=== PATIENT | female | born 1950 | race Caucasian/White ===

== ENCOUNTER → 2017-01-11 | Outpatient (CLI) | payer OTHER ==
[~2017-01-11] MED LIST: ASPEC325 PO; CLB200 PO; HYDR-5688 PO; LSN5 PO; METF1000 PO; OMEP40CA PO; ONDA8TAB6 PO; POLY335025; SIMV10TA2 PO; ULT50X PO
[2017-01-11 09:50] LABS: ALT/SGPT 31 U/L (12-78); BLOOD UREA NITROGEN 16 mg/dl (7-18); CARBON DIOXIDE 29 mmol/L (21-32); CHLORIDE 109 mmol/L (98-107); GLUCOSE 112 mg/dl (70-99); POTASSIUM 4.2 mmol/L (3.5-5.1); SODIUM 144 mmol/L (136-145)
[2017-01-11 10:01] LABS: CALCIUM 9.4 mg/dl (8.5-10.1)
[2017-01-11 10:04] LABS: BUN/CREATININE RATIO 19.5 (10-20); CHOLESTEROL 179 mg/dl (0-200); CHOLESTEROL/HDL RATIO 3.1; CREATININE 0.84 mg/dl (0.60-1.20); HDL CHOLESTEROL 57 mg/dl; LDL CHOLESTEROL CALCULATED 97 mg/dl; TRIGLYCERIDES 124 mg/dl (0-150); VERY LOW DENSITY LIPOPROT CALC 25 mg/dl
[2017-01-11 10:16] LABS: ESTIMATED AVERAGE GLUCOSE 126 mg/dl; HA1C FLAG Normal (Normal)
--- NOTE | 2017-01-15 12:10 | CODING QUERY MEDICAL NECESSITY ---
SUPPORTING DIAGNOSIS NEEDED Dr. Dc, A supporting diagnosis is required for the test/procedure performed on this patient in order for us to be reimbursed by the patient's insurance. Please provide a supporting diagnosis for the following test/procedure listed below next to the test name along with your signature. *If there is no additional diagnosis for this patient that would support the following test/procedure please document that below next to the test/procedure. Test(s)/Procedure(s) that require a supporting diagnosis: * 38417 GLYCATED HEMOGLOBIN DIAGNOSIS: DATE OF SERVICE: 01/11/17 Provider Signature: Date: Thank you Darvin Lyn [facility] Information Management Once completed, please kindly fax back to [phone] For questions please call [phone]
== END | disposition home or self-care (01) ==
LOC: C.LAB 08:23
PROVIDERS: ATTEND Family Medicine
DX: Z11.59 Encounter for screening for other viral diseases (principal); E78.5 Hyperlipidemia, unspecified; I10 Essential (primary) hypertension

== ENCOUNTER → 2017-07-20 | Outpatient (CLI) | payer OTHER ==
[2017-07-20 10:12] LABS: BLOOD UREA NITROGEN 17 mg/dl (7-18); BUN/CREATININE RATIO 22.1 (10-20); CALCIUM 8.8 mg/dl (8.5-10.1); CARBON DIOXIDE 31 mmol/L (21-32); CHLORIDE 106 mmol/L (98-107); CREATININE 0.79 mg/dl (0.60-1.20); GLUCOSE 117 mg/dl (70-99); SODIUM 140 mmol/L (136-145)
[2017-07-20 10:15] LABS: CHOLESTEROL 194 mg/dl (0-200); HDL CHOLESTEROL 64 mg/dl; LDL CHOLESTEROL CALCULATED 105 mg/dl; TRIGLYCERIDES 124 mg/dl (0-150); VERY LOW DENSITY LIPOPROT CALC 25 mg/dl
[2017-07-20 12:33] LABS: ESTIMATED AVERAGE GLUCOSE 120 mg/dl; HA1C FLAG Normal (Normal)
== END | disposition home or self-care (01) ==
LOC: C.LAB 08:27
PROVIDERS: ATTEND Family Medicine
DX: I10 Essential (primary) hypertension (principal); R78.5 Finding of other psychotropic drug in blood; R73.03 Prediabetes

== ENCOUNTER → 2017-08-26 | Outpatient (CLI) | payer OTHER ==
[~2017-08-26] MED LIST changes: +LISI-461 PO; +LISI-730 PO; -LSN5 PO; +OMEP-334 PO; +ONDA-170 PO; -ONDA8TAB6 PO
--- NOTE | 2017-08-27 14:36 | MAMMOGRAPHY REPORT ---
BILATERAL DIGITAL SCREENING MAMMOGRAM TOMOSYNTHESIS WITH CAD: 08/26/2017 CLINICAL HISTORY: Routine screening. Patient has no complaints. TECHNIQUE: Breast tomosynthesis in addition to standard 2D mammography was performed. Current study was also evaluated with a Computer Aided Detection (CAD) system. COMPARISON: Comparison is made to exams dated: 07/03/2016 mammogram, 07/10/2015 mammogram, 07/01/2015 mammogram, 01/02/2015 mammogram, 07/03/2014 mammogram, and 04/15/2012 mammogram - [facility]. BREAST COMPOSITION: There are scattered areas of fibroglandular density in both breasts. FINDINGS: An asymmetry in the lateral right breast appears very similar to the 2010 and 2011 mammogra ms, most likely normal overlapping for particular tissue. There are scattered benign-appearing punct ate microcalcifications in the breasts. Stable intramammary lymph node in the superior left breast o n the MLO view. No new suspicious mass, architectural distortion or cluster of microcalcifications i s seen. IMPRESSION: ACR BI-RADS CATEGORY 1: NEGATIVE There is no mammographic evidence of malignancy. A 1 year screening mammogram is recommended. The pa tient will receive written notification of the results. Approximately 10% of breast cancers are not detected with mammography. A negative mammographic report should not delay biopsy if a clinically suggestive mass is present. Martha Do M.D. ay/:08/26/2017 12:43:19 Medicaid Specialist: Shruthi STAFFORD(Brenda)(Kelly)([place]), [facility] letter sent: Normal 1/2 BI-RADS Code: ACR BI-RADS Category 1: Negative
== END | disposition home or self-care (01) ==
LOC: C.MAMM 12:11
PROVIDERS: ATTEND Family Medicine
DX: Z12.31 Encounter for screening mammogram for malignant neoplasm of breast (principal)

== ENCOUNTER → 2017-12-28 | Day surgery (SDC) | payer OTHER ==
[2017-11-18 12:00] VITALS: Ht 167.6 cm; Wt 104.5 kg
[~2017-12-28] VITALS: Ht 167.6 cm; Wt 104.5 kg
[~2017-12-28] MED LIST changes: +500ML BSS 0.3ML EPI 1:1000PF IRRIG ONE; +ACETAMINOPHEN 325 MG TAB PO PRN; +AMVISC PLAIN 0.8ML SYRINGE INT OCU ONE; +AMVISC PLUS 0.8ML SYRINGE INT OCU ONE; -ASPEC325 PO; +ATROPINE SULFATE 0.1 MG/ML 5ML SYR IV PRN; +BSS FLUSH ONE; -CLB200 PO; +EpHEDrine SULFATE INJ 50 MG/ML AMP IV PRN; +EpINEphrine INJ 1MG/ML AMP 1 MG/ML AMP ONE; -HYDR-5688 PO; +LACTATED RINGER'S 1000ML 500 ML IV SCH; +LIDOCAINE 3.5% OPH GEL PER APPLICATION CHARGE ONE; +LIDOCAINE HCL 1% MPF 2 ML VIAL ONE; -LISI-730 PO; +MIDAZOLAM HCL 1 MG/ML 2ML VIAL ONE; +OCUCOAT 1 ML SOLN IO ONE; -OMEP40CA PO; -ONDA-170 PO; -POLY335025; +POVIDONE-IODINE OP SOLN 30 ML BTL ONE; +PROPARACAINE 0.5% OP SOLN PER DROP CHARGE OPR SCH; +TOBRAMYCIN/DEXAMETHASONE OPH OINT PER APPLN CHARGE ONE; -ULT50X PO
[2017-12-28] MEDS: PHENYLEPHRINE HCL 2.5% OP SOLN PER DROP CHARGE OPR SCH ×2 (06:35→06:40)
[2017-12-28] MEDS: TROPICAMIDE 1% OP SOLN PER DROP CHARGE OPR SCH ×2 (06:36→06:41)
[2017-12-28] MEDS: CYCLOPENTOLATE HCL 1% OP SOLN PER DROP CHARGE OPR SCH ×2 (06:37→06:42)
[2017-12-28] MEDS: KETOROLAC 0.5% OP SOLN PER DROP CHARGE OPR SCH ×2 (06:38→06:43)
[2017-12-28] MEDS: GATIFLOXACIN OP SOLN PER DROP CHARGE OPR SCH ×2 (06:39→06:49)
--- NOTE | 2017-12-28 06:59 | History & Physical Bridge - SC ---
H&P Re-Evaluation Bridge Note: I have examined the patient, reviewed the History & Physical and in the interval since the performance of the History & Physical I have noted the following changes of clinical significance: No changes noted
--- NOTE | 2017-12-28 07:22 | [facility] Operative Report ---
Operative Report Date of Service December 28, 2017. Operative Report 1. PREOPERATIVE DIAGNOSIS: Cataract of the right eye. 2. POSTOPERATIVE DIAGNOSIS: Same. 3. PROCEDURE: Phacoemulsification with intraocular lens implantation of the right eye. SURGEON: Dr. Jared Abdalla. ANESTHESIA: Topical Lidocaine gel, 1% Non- Preserved intracameral Lidocaine, and monitored intravenous sedation. INDICATIONS FOR THE PROCEDURE: The patient is a 67 - year-old female with a history of cataract of the right eye causing significant visual impairment. The details of the proposed procedure were explained to the patient who asked appropriate questions and following discussion of all risks, benefits and alternatives agreed to have the procedure done. Patient had corneal astigmatism and therefore elected to have a toric lens placed. 4. OPERATION AND FINDINGS: DESCRIPTION OF PROCEDURE: After informed consent was obtained, the patient was placed in an upright position and the cornea was marked at 79 degrees using the [employer] corneal marking tool. The patient was brought to the Operating Room at the [facility]. The patient was placed in a supine position and then the right eye was prepped and draped in the usual sterile fashion for intraocular surgery. A drop of topical Lidocaine gel was placed in the operative eye. A wire lid speculum was then placed in the fornices. A corneal paracentesis was then created temporally. The Non-Preserved Lidocaine was then instilled into the anterior chamber. The anterior chamber was then pressurized with viscoelastic. A 2.0 mm clear corneal incision was then created temporally. A cystotome was inserted into the anterior chamber and used to create a tear in the anterior lens capsule. This capsular tear was then used to create a small flap and the flap was dragged in a counterclockwise direction in order to create a continuous curvilinear capsulorrhexis. Hydrodissection was accomplished with balanced salt solution. Phacoemulsification of the lens nucleus was then performed in a standard utjinx-rux-stcrruo technique. The phaco time was 19 seconds with an average power of 11 %. The remaining cortical material was removed using irrigation aspiration. The capsular bag was then filled with viscoelastic. A Aaron [id number] +11.5 diopters lens was then loaded into the injector and injected into the capsular bag. The remaining viscoelastic was removed with the irrigation aspiration handpiece. The lens was aligned with the previously made corneal vásquez. The wound was hydrated and then checked and found to be watertight. The intraocular pressure was checked and found to be adequate. The wire lid speculum was removed and the patient's face was cleaned and dried. TobraDex ointment was placed in the inferior fornix. The patient was discharged to the Recovery Room having tolerated the procedure well. There were no complications. The patient will be seen tomorrow in the office for follow-up. I attest to the content of the Intraoperative Record and any orders documented therein. Any exceptions are noted below.
--- NOTE | 2017-12-28 07:23 | Discharge Instructions-SurgCtr ---
Discharge Instructions Date of Service December 28, 2017. Visit Reason for Visit: Cataract Right Eye Discharge Discharge Diagnosis / Problem: cataract Discharge Goals Goal(s): Improve function Medications Stopped Medications Name(s): metformin stopped 5/6 Activity Recommendations Activity Limitations: per Instructions/Follow-up section Anesthesia . Post Anesthesia Instructions: If you have had General Anesthesia or IV Sedation: * Do not drive today. * Resume driving when surgeon permits. * Do not make important decisions or sign legal documents today. * Call surgeon for: 1. Temperature elevations greater than 101 degrees F. 2. Uncontrollable pain. 3. Excessive bleeding. 4. Persistent nausea and vomiting. 5. Medication intolerance (nausea, vomiting or rash). * For nausea and vomiting use only clear liquids such as: tea, soda, bouillon until nausea subsides, then gradually increase diet as tolerated. * If you have any concerns or questions, call your surgeon's office. If physician is unavailable and it is an emergency, call 911 or go to the nearest emergency room. . Diet Recommendations Home Diet: resume previous diet Procedures Procedures Performed: Right Cataract Phacoemulsification With Intraocular Lens Implant Pending Studies Studies pending at discharge: no Medical Emergencies . Who to Call and When: Medical Emergencies: If at any time you feel your situation is an emergency, please call 911 immediately. . Non-Emergent Contact Non-Emergency issues call your: [employer] . . "Provider Documentation" section prepared by Jared Abdalla. .
[2017-12-28 07:25] VITALS: TEMP 36.2
--- NOTE | 2017-12-28 07:34 | Anesthesia Progress Nt - [facility] ---
Anesthesia Post Op Note Date & Time December 28, 2017 at 07:34 Vital Signs Pain Intensity: 0 Vital Signs Past 12 Hours Date Time Temp Pulse Resp B/P (MAP) Pulse Ox O2 Delivery O2 Flow Rate FiO2 12/28/17 07:25 36.2 74 16 138/76 (96) 98 Room Air 12/28/17 06:25 37.5 77 20 134/103 (113) 98 Room Air Notes Mental Status: alert / awake / arousable, participated in evaluation Pt Amnestic to Procedure: Yes Nausea / Vomiting: adequately controlled Pain: adequately controlled Airway Patency, RR, SpO2: stable & adequate BP & HR: stable & adequate Hydration State: stable & adequate Anesthetic Complications: no major complications apparent
[2017-12-28 07:44] VITALS: BP 139/74; PULSE 67; O2SAT 98
== END | disposition home or self-care (01) ==
LOC: X.SURG 06:13
PROVIDERS: ATTEND Ophthalmology
DX: H26.9 Unspecified cataract (principal); I10 Essential (primary) hypertension; E11.9 Type 2 diabetes mellitus without complications; K21.9 Gastro-esophageal reflux disease without esophagitis

== ENCOUNTER → 2018-01-11 | Day surgery (SDC) | payer OTHER ==
[2018-01-04 09:00] VITALS: Ht 167.6 cm; Wt 104.5 kg
[~2018-01-11] VITALS: Ht 167.6 cm; Wt 104.5 kg
[~2018-01-11] MED LIST changes: +PROPARACAINE 0.5% OP SOLN PER DROP CHARGE OPL SCH; -PROPARACAINE 0.5% OP SOLN PER DROP CHARGE OPR SCH
[2018-01-11] MEDS: PHENYLEPHRINE HCL 2.5% OP SOLN PER DROP CHARGE OPL SCH ×2 (09:57→10:02)
[2018-01-11] MEDS: TROPICAMIDE 1% OP SOLN PER DROP CHARGE OPL SCH ×2 (09:58→10:03)
[2018-01-11] MEDS: CYCLOPENTOLATE HCL 1% OP SOLN PER DROP CHARGE OPL SCH ×2 (09:59→10:04)
[2018-01-11] MEDS: KETOROLAC 0.5% OP SOLN PER DROP CHARGE OPL SCH ×2 (10:00→10:05)
[2018-01-11] MEDS: GATIFLOXACIN OP SOLN PER DROP CHARGE OPL SCH ×2 (10:01→10:11)
--- NOTE | 2018-01-11 10:07 | History & Physical Bridge - SC ---
H&P Re-Evaluation Bridge Note: I have examined the patient, reviewed the History & Physical and in the interval since the performance of the History & Physical I have noted the following changes of clinical significance: Diagnosis: Left Cataract Procedure: Left Cataract Removal with Lens Implant No changes noted
--- NOTE | 2018-01-11 10:43 | [facility] Operative Report ---
Operative Report Date of Service January 11, 2018. Operative Report 1. PREOPERATIVE DIAGNOSIS: Cataract of the left eye. 2. POSTOPERATIVE DIAGNOSIS: Same. 3. PROCEDURE: Phacoemulsification with intraocular lens implantation of the left eye. SURGEON: Dr. Jared Abdalla. ANESTHESIA: Topical Lidocaine gel, 1% Non- Preserved intracameral Lidocaine, and monitored intravenous sedation. INDICATIONS FOR THE PROCEDURE: The patient is a 67 - year-old female with a history of cataract of the left eye causing significant visual impairment. The details of the proposed procedure were explained to the patient who asked appropriate questions and following discussion of all risks, benefits and alternatives agreed to have the procedure done. Patient had corneal astigmatism and therefore elected to have a toric lens placed. 4. OPERATION AND FINDINGS: DESCRIPTION OF PROCEDURE: After informed consent was obtained, the patient was placed in an upright position and the cornea was marked at 86 degrees using the [employer] corneal marking tool. The patient was brought to the Operating Room at the [facility]. The patient was placed in a supine position and then the left eye was prepped and draped in the usual sterile fashion for intraocular surgery. A drop of topical Lidocaine gel was placed in the operative eye. A wire lid speculum was then placed in the fornices. A corneal paracentesis was then created temporally. The Non-Preserved Lidocaine was then instilled into the anterior chamber. The anterior chamber was then pressurized with viscoelastic. A 2.0 mm clear corneal incision was then created temporally. A cystotome was inserted into the anterior chamber and used to create a tear in the anterior lens capsule. This capsular tear was then used to create a small flap and the flap was dragged in a counterclockwise direction in order to create a continuous curvilinear capsulorrhexis. Hydrodissection was accomplished with balanced salt solution. Phacoemulsification of the lens nucleus was then performed in a standard vvvzpt-ruc-sehowvv technique. The phaco time was 17 seconds with an average power of 10 %. The remaining cortical material was removed using irrigation aspiration. The capsular bag was then filled with viscoelastic. A Aaron [id number] +11.5 diopters lens was then loaded into the injector and injected into the capsular bag. The remaining viscoelastic was removed with the irrigation aspiration handpiece. The lens was aligned with the previously made corneal vásquez. The wound was hydrated and then checked and found to be watertight. The intraocular pressure was checked and found to be adequate. The wire lid speculum was removed and the patient's face was cleaned and dried. TobraDex ointment was placed in the inferior fornix. The patient was discharged to the Recovery Room having tolerated the procedure well. There were no complications. The patient will be seen tomorrow in the office for follow-up. I attest to the content of the Intraoperative Record and any orders documented therein. Any exceptions are noted below.
--- NOTE | 2018-01-11 10:44 | Discharge Instructions-SurgCtr ---
Discharge Instructions Date of Service January 11, 2018. Visit Reason for Visit: Cataract Left Eye Discharge Discharge Diagnosis / Problem: cataract Discharge Goals Goal(s): Improve function Medications Stopped Medications Name(s): metformin stopped 01-08-18 Activity Recommendations Activity Limitations: per Instructions/Follow-up section Anesthesia . Post Anesthesia Instructions: If you have had General Anesthesia or IV Sedation: * Do not drive today. * Resume driving when surgeon permits. * Do not make important decisions or sign legal documents today. * Call surgeon for: 1. Temperature elevations greater than 101 degrees F. 2. Uncontrollable pain. 3. Excessive bleeding. 4. Persistent nausea and vomiting. 5. Medication intolerance (nausea, vomiting or rash). * For nausea and vomiting use only clear liquids such as: tea, soda, bouillon until nausea subsides, then gradually increase diet as tolerated. * If you have any concerns or questions, call your surgeon's office. If physician is unavailable and it is an emergency, call 911 or go to the nearest emergency room. . Diet Recommendations Home Diet: resume previous diet Procedures Procedures Performed: Left Cataract Phacoemulsification With Intraocular Lens Implant; Toric Lens Pending Studies Studies pending at discharge: no Medical Emergencies . Who to Call and When: Medical Emergencies: If at any time you feel your situation is an emergency, please call 911 immediately. . Non-Emergent Contact Non-Emergency issues call your: [employer] . . "Provider Documentation" section prepared by Jared Abdalla. .
[2018-01-11 11:07] VITALS: BP 137/82; PULSE 57; O2SAT 99
--- NOTE | 2018-01-11 11:14 | Anesthesia Progress Nt - [facility] ---
Anesthesia Post Op Note Date & Time January 11, 2018 at 11:14 Vital Signs Pain Intensity: 0 Vital Signs Past 12 Hours Date Time Temp Pulse Resp B/P (MAP) Pulse Ox O2 Delivery O2 Flow Rate FiO2 01/11/18 11:07 57 18 137/82 (100) 99 Room Air 01/11/18 10:48 36.5 78 16 144/82 (102) 97 Room Air 01/11/18 09:54 36.9 72 16 151/97 (115) 99 Room Air Notes Mental Status: alert / awake / arousable, participated in evaluation Pt Amnestic to Procedure: Yes Nausea / Vomiting: adequately controlled Pain: adequately controlled Airway Patency, RR, SpO2: stable & adequate BP & HR: stable & adequate Hydration State: stable & adequate Anesthetic Complications: no major complications apparent
== END | disposition home or self-care (01) ==
LOC: X.SURG 09:45
PROVIDERS: ATTEND Ophthalmology
DX: H26.9 Unspecified cataract (principal); K22.70 Barrett's esophagus without dysplasia; E78.5 Hyperlipidemia, unspecified; I10 Essential (primary) hypertension; E11.9 Type 2 diabetes mellitus without complications; Z79.84 Long term (current) use of oral hypoglycemic drugs; Z87.891 Personal history of nicotine dependence

== ENCOUNTER 2023-08-08 11:13 | Inpatient (IN) ==
[2023-08-08] MEDS ORDERED: fentaNYL citrate PF 100 MCG/2 ML VIAL IV STA ×2 (11:21→11:47)
[2023-08-08] MEDS ORDERED: ONDANSETRON INJ 2 MG/ML 2 ML VIAL IV STA (11:21)
--- NOTE | 2023-08-08 11:27 | Emergency Department Note ---
Impression & Plan Fracture of wrist, Fall ED Provider Note NAME: SOLEDAD REYES AGE: 73 SEX: F : 1950 ARRIVES VIA: Ambulance INFORMANT: Patient ED PROVIDER(S): Brian Lujan DO CHIEF COMPLAINT: left wrist pain HPI: Patient is a 73-year-old female with a past medical history of hypertension, hyperlipidemia, Mnire's and prediabetes that presents ER following mechanical fall. She was walking out of a store and tripped and missed the step and fell forward and hit her left wrist. She is having severe left wrist pain. No tingling or numbness. She did not hit her head. No head or neck pain. No chest pain belly pain back pain or any other extremity pain. She was brought in by EMS. Additional history provided by EMS. They splinted her and did not give any pain medications. She did not eat anything this morning but drank tea around 9 AM. ADDITIONAL HISTORY OBTAINED: Per HPI Chronic Medical/Social Conditions Affecting Care: Per HPI PAST MEDICAL HISTORY:See Below PAST SURGICAL HISTORY:See Below FAMILY HISTORY:See Below SOCIAL HISTORY:See Below HOME MEDICATIONS:See Below ALLERGIES:See Below VITALS:See Below PHYSICAL EXAMINATION: GENERAL: Sitting up in bed, alert, well appearing, well nourished, no distress, non-toxic HEAD: NC/AT EYE EXAM: normal conjunctiva. PERRL and EOM's grossly intact. OROPHARYNX: no exudate, no erythema, lips, buccal mucosa, and tongue normal and mucous membranes are moist NECK: supple, no nuchal rigidity, no adenopathy, non-tender LUNGS: Clear to auscultation. Normal chest wall mechanics HEART: no murmurs, S1 normal and S2 normal ABDOMEN: abdomen soft, non-tender, normo-active bowel sounds, no masses, no rebound or guarding. UPPER EXTREMITIES: Flexion extension right shoulder elbow wrist and grasp intact. No tenderness on palpation of left shoulder, humerus, elbow proximal or mid forearm. Tenderness with obvious deformity at the left wrist. Able to wiggle fingers. No numbness. Abrasion on the dorsal surface of the left lateral wrist with a small amount of oozing. LOWER EXTREMITIES: No pitting edema. NEURO EXAM: Normal sensorium, cranial nerves II-XII grossly intact, normal speech, no gross weakness of arms, no gross weakness of legs. No drift. Finger to nose intact. Gross sensation intact. MEDICAL DECISION MAKING: Patient is a 73-year-old female who presents ER following mechanical fall for left wrist pain. IV was established blood work was obtained. CBC and BMP were unremarkable. X-rays of the wrist show clear distal radial fracture. Discussed with orthopedics who evaluated the patient at bedside. They did recommend IV antibiotics and initially CT which they later canceled and they took her to the OR after hematoma block in the ER. Patient was updated at bedside. Consults/Care Managements Discussions: Per [facility] Triage Nursing notes reviewed. Limited review of prior medical records performed Vital Signs: reviewed and remarkable for no significant abnormalities Differential diagnosis: Differential diagnoses include major intracranial, cervical, spinal, thoracic, abdominal, pelvic and neurologic injury. Fracture, contusion, sprain, strain, laceration, abrasions included as well. ER treatment provided: See below Diagnostics interpreted by me include EKG and cardiac monitoring as listed below: -Cardiac Monitoring: An order was placed for continuous cardiac monitoring. The monitor shows a rate of 80 with sinus rhythm. -ECG: none -Laboratory studies:Interpreted by me as stated above in MDM and shown below. Imaging studies: Xrays: As interpreted by me: X-ray of the left wrist shows a left distal radial fracture per my read X-rays of the hand and forearm show no other additional fractures per radiology CTs show: none Procedures:none Critical Care: None Past Med/Surg History Medical History (Updated 08/08/23 @ 17:51 by Brian Lujan DO) Asymmetric SNHL (sensorineural hearing loss) Salgado's esophagus Eosinophilic esophagitis Essential hypertension Hyperlipidemia Meniere's disease, left ear Prediabetes Left ureteral calculus Surgical History History of colonoscopy Longitudinal reduction defect of left femur Hx of cataract surgery History of knee replacement History of hip replacement H/O tooth extraction Hx of tonsillectomy H/O tubal ligation Hx of total knee arthroplasty H/O esophagogastroduodenoscopy History of colposcopy Hx of cholecystectomy Family History Father Coronary heart disease Hypertension Unknown Hypertension Cancer Cardiac disorder Sister Cerebral aneurysm Mother Colon cancer Aunt Colon cancer Denies family history of Ovarian cancer Prostate cancer FH: deafness or hearing loss Allergies Myocardial infarction Adverse anesthesia outcome Breast cancer Sinusitis Bleeding disorder Stroke Asthma Social History Smoking Status: Never smoker Tobacco Type: Cigarettes Age Started Using Tobacco: 18; Age Quit Using Tobacco: 37; packs per day: 1; Second Hand Exposure: No; Do You Dip or Chew Tobacco: No; Hx Alcohol Use: Yes Alcohol type: wine Alcohol Intake Frequency: 2-4 x/Month Hx Substance Use: No Preferred Language: Mauritanian Communication Ability: Effective Visual Impairment: No Limitations Hearing Ability: Normal marital status: Current Living Situation: Spouse current occupational status: retired Feels Safe at Home: Yes Childhood Exposure to Second-Hand Smoke: Yes Diet: regular Dental Care, Regularly: Yes Physical Activity Frequency: 1-2 Times per Week Seatbelt Use: always Sunscreen Use: Yes Allergies Allergies Allergy/AdvReac Type Severity Reaction Status Date / Time No Known Drug Allergies Allergy Verified 08/08/23 14:38 Home Meds Home Medications Medication Instructions Recorded Confirmed latanoprost 0.005 % eye drops 1 drp ophthalmic (eye) DAILY 04/15/20 08/08/23 lisinopril 10 mg tablet 10 mg PO QAM 08/08/23 08/08/23 metformin 500 mg tablet,extended 500 mg PO HS 08/08/23 08/08/23 release 24hr (osmotic) omeprazole 40 mg capsule,delayed 40 mg PO QAM 08/08/23 08/08/23 release simvastatin 10 mg tablet 10 mg PO HS 08/08/23 08/08/23 Previous Rx's Medication Instructions Recorded tramadol 50 mg tablet 50 mg PO DAILY PRN back pain #30 02/05/21 tabs Results & Data (ED) Vital Signs Vital Signs - 24 hr 08/08/23 11:02 08/08/23 11:28 08/08/23 11:30 Temperature 36.6 C Temperature Source Oral Pulse Rate 82 78 76 Pulse Rate from SpO2 Sensor 59 L 63 Respiratory Rate 22 14 16 Respiratory Effort / Characteristics Non-Labored Spontaneous Respiratory Depth Normal Respiratory Pattern Regular Blood Pressure 182/71 H 178/69 H Blood Pressure Mean 108 105 Blood Pressure Position Sitting Pulse Oximetry 98 98 88 L Oxygen Delivery Method Room Air Sepsis Recent Fever Within 48 Hours No Sepsis New/Unexplained Change in Mental Status No Sepsis Action Taken by Nursing No Action Required 08/08/23 11:35 12/17/23 12:00 08/08/23 12:30 Temperature Temperature Source Pulse Rate 78 70 70 Pulse Rate from SpO2 Sensor 69 70 Respiratory Rate 17 15 Respiratory Effort / Characteristics Respiratory Depth Respiratory Pattern Blood Pressure Blood Pressure Mean Blood Pressure Position Pulse Oximetry 98 97 Oxygen Delivery Method Sepsis Recent Fever Within 48 Hours Sepsis New/Unexplained Change in Mental Status Sepsis Action Taken by Nursing 08/08/23 12:45 08/08/23 13:00 08/08/23 13:15 Temperature Temperature Source Pulse Rate 64 81 86 Pulse Rate from SpO2 Sensor 62 76 80 Respiratory Rate 14 15 14 Respiratory Effort / Characteristics Respiratory Depth Respiratory Pattern Blood Pressure Blood Pressure Mean Blood Pressure Position Pulse Oximetry 96 96 100 Oxygen Delivery Method Sepsis Recent Fever Within 48 Hours Sepsis New/Unexplained Change in Mental Status Sepsis Action Taken by Nursing 08/08/23 13:26 08/08/23 13:26 08/08/23 13:30 Temperature Temperature Source Pulse Rate 81 83 Pulse Rate from SpO2 Sensor 74 72 Respiratory Rate 16 14 Respiratory Effort / Characteristics Respiratory Depth Respiratory Pattern Blood Pressure 141/67 H Blood Pressure Mean 106 Blood Pressure Position Pulse Oximetry 99 99 Oxygen Delivery Method Sepsis Recent Fever Within 48 Hours Sepsis New/Unexplained Change in Mental Status Sepsis Action Taken by Nursing Laboratory Data 08/08/23 11:40 08/08/23 11:40 Lab Results 08/08/23 Range/Units 11:40 WBC 6.14 (4.8-10.8) K/ul RBC 4.49 (4.20-5.40) M/uL Hgb 13.4 (12.0-16.0) g/dl Hct 39.8 (37.0-47.0) % MCV 88.6 (80.0-100.0) fL MCH 29.8 (25.0-34.0) pg MCHC 33.7 (32.0-36.0) g/dL RDW Std Deviation 42.1 (36.4-46.3) fL RDW Coeff of Mckayla 13.0 (11.5-14.5) % Plt Count 205 (130-400) K/uL MPV 10.1 (9.4-12.4) fL Immature Gran % (Auto) 0.3 % Neut % (Auto) 62.8 % Lymph % (Auto) 27.5 % [place] % (Auto) 6.7 % Eos % (Auto) 2.0 % Baso % (Auto) 0.7 % Neut # (Auto) 3.86 (1.40-6.50) K/uL Lymph # (Auto) 1.69 (1.20-3.40) K/uL [place] # (Auto) 0.41 (0.11-0.59) K/uL Eos # (Auto) 0.12 (0.00-0.50) K/uL Baso # (Auto) 0.04 (0.00-0.20) K/uL Immature Gran # (Auto) 0.02 (0.01-0.20) K/uL Sodium 139 (136-145) mmol/L Potassium 3.7 (3.5-5.1) mmol/L Chloride 105 (98-107) mmol/L Carbon Dioxide 25 (21-32) mmol/L Anion Gap 9 (3-11) BUN 16 (6-23) mg/dl Creatinine 0.75 (0.6-1.2) mg/dl Est Cr Clr Drug Dosing 88.5 ml/min Est GFR ( Amer) 92.3 ml/min Est GFR (Non-Af Amer) 79.6 ml/min BUN/Creatinine Ratio 21.3 H (10-20) Glucose 131 H (70-99(Fasting)) mg/dl Calcium 9.0 (8.6-10.3) mg/dl Administered Medications Morphine Sulfate (Morphine Sulfate 2 Mg/Ml Carp) 2 mg IV Q1H PRN PRN Reason: Moderate Pain (Rating 3,4,5,6) Stop: 08/22/23 13:04 Last Admin: 08/08/23 13:19 Dose: 2 mg Documented By: NDW Discontinued Medications Bupivacaine HCl (Bupivacaine 0.5 % 5 Mg/1 Ml Mpf 30ml Vial) Confirm Administered Dose 30 ml .ROUTE .STK-MED ONE Stop: 08/08/23 14:36 Last Admin: 08/08/23 17:43 Dose: 20 ml Documented By: PSS Diphtheria/Pertussis/Tetanus Vacc (Diphtheria/Tetanus/Pertussis Vaccine (Tdap, Age 7+Yrs) 0.5ml Syr/Vl) 0.5 ml IM .ONCE ONE Stop: 08/08/23 13:06 Last Admin: 08/08/23 13:26 Dose: 0.5 ml Documented By: LOREN Fentanyl Citrate (Fentanyl Citrate Pf 100 Mcg/2 Ml Vial) 50 mcg IV NOW STA Stop: 08/08/23 11:22 Last Admin: 08/08/23 11:38 Dose: 50 mcg Documented By: LOREN Fentanyl Citrate (Fentanyl Citrate Pf 100 Mcg/2 Ml Vial) 25 mcg IV NOW STA Stop: 08/08/23 11:48 Last Admin: 08/08/23 12:15 Dose: 25 mcg Documented By: LOREN Cefazolin Sodium 3,000 mg/ (Dextrose) 72.5 mls @ 145 mls/hr IV NOW STA Stop: 08/08/23 13:34 Last Admin: 08/08/23 13:32 Dose: 145 mls/hr Documented By: NANCY Lidocaine HCl (Lidocaine 1% Local 20 Ml Vial) Confirm Administered Dose 20 ml .ROUTE .STK-MED ONE Stop: 08/08/23 12:23 Last Admin: 08/08/23 12:24 Dose: 20 ml Documented By: LOREN Lidocaine/Epinephrine (Lidocaine 1%/Epinephrine 1:100,000 20 Ml Vial) Confirm Administered Dose 1 ml .ROUTE .STK-MED ONE Stop: 08/08/23 12:23 Last Admin: 08/08/23 12:25 Dose: 1 ml Documented By: LOREN Lidocaine/Epinephrine (Lidocaine 1%/Epinephrine 1:100,000 20 Ml Vial) Confirm Administered Dose 20 ml .ROUTE .STK-MED ONE Stop: 08/08/23 14:37 Last Admin: 08/08/23 17:44 Dose: 20 ml Documented By: ORESTES Morphine Sulfate (Morphine Sulfate 4 Mg/Ml 1 Ml Carp\Vial) 4 mg IV NOW STA Stop: 08/08/23 12:21 Last Admin: 08/08/23 12:33 Dose: 4 mg Documented By: LOREN Ondansetron HCl (Ondansetron Inj 2 Mg/Ml 2 Ml Vial) 4 mg IV NOW STA Stop: 08/08/23 11:22 Last Admin: 08/08/23 11:38 Dose: 4 mg Documented By: LOREN Imaging Data Radiologist's Impression: Wrist X-Ray 08/08/23 00:00 INTRAOPERATIVE RADIOGRAPHS CLINICAL HISTORY: Closed reduction of the left wrist Fluoro time: 20 seconds Ka,r: 0.644 mGy FINDINGS: 18 spot fluoroscopic views of the left wrist are correlated with radiograph performed the same day 08/08/2023. Again seen are comminuted fractures of the distal radius and ulna. There is significantly improved alignment status post external fixation. There is persistent overriding of the distal ulnar fragments as well as displaced radial fragment. Casting material has been placed on the final images. IMPRESSION: Improved alignment of distal radial and ulnar fractures status post closed reduction. Electronically signed by: Tim Yadav M.D. 08/08/2023 2:22 PM Forearm X-Ray 08/08/23 11:21 LEFT FOREARM 2 VIEWS; LEFT WRIST 3 VIEWS; LEFT HAND 3 VIEWS CLINICAL HISTORY: Left arm injury. FINDINGS: AP and lateral views of the left forearm, 3 views of the left wrist, and 3 views of the left hand are obtained. No prior studies are available for comparison at the time of dictation. The skeletal structures are osteopenic. There is an impacted and comminuted fracture of the distal radial metaphysis with intra-articular extension and volar displacement of fragments. There is also mild overriding of fragments. There is a comminuted horizontal fracture of the distal ulnar metadiaphysis. There is ulnar sided displacement of the distal fragment by 6 mm, apex dorsal angulation, and approximately 2 cm of overriding of fragments. There is also an avulsion fracture of the ulnar styloid. Significant overlying soft tissue edema is observed. The proximal radius and ulna appear intact. The elbow joint is grossly maintained. The radiocarpal articulation is preserved. No additional fracture there is seen involving the wrist or hand. 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 IMPRESSION: 1. Distal radial and ulnar fractures as above. 2. The proximal radius and ulna appear intact. 3. No additional fracture is seen involving the wrist or hand. Electronically signed by: Tim Yadav M.D. 08/08/2023 1:26 PM Hand X-Ray 08/08/23 11:21 LEFT FOREARM 2 VIEWS; LEFT WRIST 3 VIEWS; LEFT HAND 3 VIEWS CLINICAL HISTORY: Left arm injury. FINDINGS: AP and lateral views of the left forearm, 3 views of the left wrist, and 3 views of the left hand are obtained. No prior studies are available for comparison at the time of dictation. The skeletal structures are osteopenic. There is an impacted and comminuted fracture of the distal radial metaphysis with intra-articular extension and volar displacement of fragments. There is also mild overriding of fragments. There is a comminuted horizontal fracture of the distal ulnar metadiaphysis. There is ulnar sided displacement of the distal fragment by 6 mm, apex dorsal angulation, and approximately 2 cm of overriding of fragments. There is also an avulsion fracture of the ulnar styloid. Significant overlying soft tissue edema is observed. The proximal radius and ulna appear intact. The elbow joint is grossly maintained. The radiocarpal articulation is preserved. No additional fracture there is seen involving the wrist or hand. 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 IMPRESSION: 1. Distal radial and ulnar fractures as above. 2. The proximal radius and ulna appear intact. 3. No additional fracture is seen involving the wrist or hand. Electronically signed by: Tim Yadav M.D. 08/08/2023 1:26 PM Wrist X-Ray 08/08/23 11:21 LEFT FOREARM 2 VIEWS; LEFT WRIST 3 VIEWS; LEFT HAND 3 VIEWS CLINICAL HISTORY: Left arm injury. FINDINGS: AP and lateral views of the left forearm, 3 views of the left wrist, and 3 views of the left hand are obtained. No prior studies are available for comparison at the time of dictation. The skeletal structures are osteopenic. There is an impacted and comminuted fracture of the distal radial metaphysis with intra-articular extension and volar displacement of fragments. There is also mild overriding of fragments. There is a comminuted horizontal fracture of the distal ulnar metadiaphysis. There is ulnar sided displacement of the distal fragment by 6 mm, apex dorsal angulation, and approximately 2 cm of overriding of fragments. There is also an avulsion fracture of the ulnar styloid. Significant overlying soft tissue edema is observed. The proximal radius and ulna appear intact. The elbow joint is grossly maintained. The radiocarpal articulation is preserved. No additional fracture there is seen involving the wrist or hand. 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 IMPRESSION: 1. Distal radial and ulnar fractures as above. 2. The proximal radius and ulna appear intact. 3. No additional fracture is seen involving the wrist or hand. Electronically signed by: Tim Yadav M.D. 08/08/2023 1:26 PM Chest X-Ray 08/08/23 13:53 SINGLE VIEW CHEST CLINICAL HISTORY: Dyspnea. Preoperative examination FINDINGS: An AP, portable, upright chest radiograph is compared to study dated 01/19/2014. The heart is enlarged noting atherosclerotic calcification of the thoracic aorta. The pulmonary vasculature is noncongested. Chronic interstitial thickening is similar to previous. The lungs and pleural spaces are clear. No pneumothorax is seen. The skeletal structures are osteopenic. There are chronic/healed right-sided rib fractures. Arthritic change is noted in shoulders and spine. IMPRESSION: Cardiomegaly with no active disease in the chest. ACT 112: Negative or not required by law. Electronically signed by: Tim Yadav M.D. 08/08/2023 2:07 PM Discharge Plan Visit Data Chief Complaint: Fall ED Provider: Brian Lujan Discharge Problem: Fracture of wrist, Fall Patient Disposition: Admitted As Inpatient Discharge Instructions Interventions: ED Discharge Assessment Last Done: 08/08/23 17:07 Discharge Problem: Fracture of wrist Qualifiers: Encounter type: initial encounter Fracture type: open Laterality: left Q ualified Code(s): S62.102B - Fracture of unspecified carpal bone, left wrist, initial encounter for open fracture Fall Qualifiers: Encounter type: initial encounter Qualified Code(s): W19.XXXA - Unspecified fall, initial encounter
[2023-08-08 12:04] LABS: Basophils # (auto) 0.04 K/uL (0.00-0.20); Basophils % (auto) 0.7 %; Eosinophils # (auto) 0.12 K/uL (0.00-0.50); Hematocrit (blood only) 39.8 % (37.0-47.0); Hemoglobin 13.4 g/dl (12.0-16.0); Immature Granulocytes # (auto) 0.02 K/uL (0.01-0.20); Immature Granulocytes % (auto) 0.3 %; Lymphocytes # (auto) 1.69 K/uL (1.20-3.40); Lymphocytes % (auto) 27.5 %; Mean Corpuscular Hemoglobin 29.8 pg (25.0-34.0); Mean Corpuscular Hgb Conc 33.7 g/dL (32.0-36.0); Mean Corpuscular Volume 88.6 fL (80.0-100.0); Mean Platelet Volume 10.1 fL (9.4-12.4); Monocytes # (auto) 0.41 K/uL (0.11-0.59); Monocytes % (auto) 6.7 %; Neutrophils # (auto) 3.86 K/uL (1.40-6.50); Neutrophils % (auto) 62.8 %; Platelet Count 205 K/uL (130-400); RDW Standard Deviation 42.1 fL (36.4-46.3); Red Blood Count 4.49 M/uL (4.20-5.40); White Blood Count 6.14 K/ul (4.8-10.8)
[2023-08-08 12:18] LABS: BUN Creatinine Ratio 21.3 (10-20); Creatinine Clr Calc Pharmacy 88.5 ml/min; Est GFR (African American) 92.3 ml/min; Est GFR (Non-African American) 79.6 ml/min; Potassium 3.7 mmol/L (3.5-5.1)
[2023-08-08] MEDS ORDERED: MoRPHine SULFATE 4 MG/ML 1 ML CARP\\VIAL IV STA (12:20)
[2023-08-08] MEDS ORDERED: LIDOCAINE 1%/EPINEPHRINE 1:100,000 20 ML VIAL ONE ×2 (12:22→14:36)
[2023-08-08] MEDS ORDERED: LIDOCAINE 1% LOCAL 20 ML VIAL ONE (12:22)
[2023-08-08] MEDS ORDERED: MoRPHine SULFATE 2 MG/ML CARP IV PRN (13:05)
[2023-08-08] MEDS ORDERED: DIPHTHERIA/TETANUS/PERTUSSIS Vaccine (Tdap, Age 7+yrs) 0.5mL SYR/VL IM ONE (13:05)
[2023-08-08] MEDS ORDERED: ceFAZolin 3,000 MG in DEXTROSE 5% 50 ML IV STA (13:05)
[2023-08-08] MEDS ORDERED: MoRPHine SULFATE 4 MG/ML 1 ML CARP\\VIAL IV PRN (13:05)
--- NOTE | 2023-08-08 13:28 | XRay Report ---
LEFT FOREARM 2 VIEWS; LEFT WRIST 3 VIEWS; LEFT HAND 3 VIEWS CLINICAL HISTORY: Left arm injury. FINDINGS: AP and lateral views of the left forearm, 3 views of the left wrist, and 3 views of the lef t hand are obtained. No prior studies are available for comparison at the time of dictation. The skel etal structures are osteopenic. There is an impacted and comminuted fracture of the distal radial met aphysis with intra-articular extension and volar displacement of fragments. There is also mild overri ding of fragments. There is a comminuted horizontal fracture of the distal ulnar metadiaphysis. There is ulnar sided displacement of the distal fragment by 6 mm, apex dorsal angulation, and approximatel y 2 cm of overriding of fragments. There is also an avulsion fracture of the ulnar styloid. Significa nt overlying soft tissue edema is observed. The proximal radius and ulna appear intact. The elbow alexia nt is grossly maintained. The radiocarpal articulation is preserved. No additional fracture there is seen involving the wrist or hand. 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 IMPRESSION: 1. Distal radial and ulnar fractures as above. 2. The proximal radius and ulna appear intact. 3. No additional fracture is seen involving the wrist or hand. Electronically signed by: Tim Yadav M.D. 08/08/2023 1:26 PM
--- NOTE | 2023-08-08 13:38 | Anesthesiology Consultation ---
Date of Service August 08, 2023 Assessment & Plan (1) Encounter for pre-operative examination: Chart Review Chart Review: Acceptable Risk for Surgery History Height/Weight Height: 5 ft 9 in Weight: 107.3 kg Allergies Allergy/AdvReac Type Severity Reaction Status Date / Time No Known Drug Allergies Allergy Verified 05/12/23 14:00 Medications Home Medications Medication Instructions Recorded Confirmed Last Taken latanoprost 0.005 % eye drops 1 drp ophthalmic (eye) DAILY 04/15/20 05/12/23 Unknown tramadol 50 mg tablet 50 mg PO DAILY PRN back pain #30 02/05/21 05/12/23 Unknown tabs metformin 500 mg tablet,extended 1,000 mg (2 x 500 mg) PO QPM 90 05/05/22 05/12/23 Unknown release 24hr (osmotic) days #180 tabs lisinopril 10 mg tablet See Rx Instructions .Route 01/04/23 05/12/23 Unknown .COMPLEX #90 tabs omeprazole 40 mg capsule,delayed 40 mg PO DAILY #90 caps 01/04/23 05/12/23 Unknown release simvastatin 10 mg tablet See Rx Instructions .Route 06/25/23 Unknown .COMPLEX #90 tabs Active Medications Generic Name Dose Route Start Last Admin Trade Name Freq PRN Reason Stop Dose Admin Morphine Sulfate 2 mg 08/08/23 13:05 08/08/23 13:19 Morphine Sulfate 2 Mg/Ml Carp IV 08/22/23 13:04 2 mg Q1H PRN Administration Moderate Pain (Rating 3,4,5,6) NPO Date Last Intake of Fluids: 08/08/23 Time Last Intake of Fluids: 09:00 Last Intake of Fluids Comment: tea Past Medical History Medical History (Updated 08/08/23 @ 13:38 by Darvin James MD) Asymmetric SNHL (sensorineural hearing loss) Salgado's esophagus Eosinophilic esophagitis Essential hypertension Hyperlipidemia Meniere's disease, left ear Prediabetes Left ureteral calculus Past Family History Family History Father Coronary heart disease Hypertension Unknown Hypertension Cancer Cardiac disorder Sister Cerebral aneurysm Mother Colon cancer Aunt Colon cancer Denies family history of Ovarian cancer Prostate cancer FH: deafness or hearing loss Allergies Myocardial infarction Adverse anesthesia outcome Breast cancer Sinusitis Bleeding disorder Stroke Asthma Past Surgical History Surgical History History of colonoscopy Longitudinal reduction defect of left femur Hx of cataract surgery History of knee replacement History of hip replacement H/O tooth extraction Hx of tonsillectomy H/O tubal ligation Hx of total knee arthroplasty H/O esophagogastroduodenoscopy History of colposcopy Hx of cholecystectomy Social History Smoking Status: Never smoker Do You Dip or Chew Tobacco: No Hx Alcohol Use: Yes Alcohol type: wine Hx Substance Use: No Physical Exam Vital Signs Last Vital Signs Temp 36.6 C 08/08/23 11:02 Pulse 70 08/08/23 12:30 Resp 15 08/08/23 12:30 BP 178/69 H 08/08/23 11:30 Pulse Ox 97 08/08/23 12:30 O2 Del Method Room Air 08/08/23 11:02 Testing Laboratory Results 08/08/23 11:40 08/08/23 11:40
[2023-08-08] MEDS ORDERED: LIDOCAINE 2% 2 ML VIAL/AMP(20MG/ML) INFIL ONE (13:48)
[2023-08-08] MEDS ORDERED: ONDANSETRON INJ 2 MG/ML 2 ML VIAL ONE ×2 (13:48→19:32)
[2023-08-08] MEDS ORDERED: PROPOFOL IV EMULSION 10 MG/ML 20 ML VIAL IV ONE (13:48)
[2023-08-08] MEDS ORDERED: DEXAMETHASONE SOD INJ 4 MG/ML VIAL ONE (13:48)
[2023-08-08] MEDS ORDERED: ROCURONIUM BROMIDE 10 MG/ML 5 ML VIAL IV ONE (13:48)
[2023-08-08] MEDS ORDERED: PHENYLEPHRINE HCL 10 MG/ML VIAL ONE (13:49)
[2023-08-08] MEDS ORDERED: fentaNYL citrate PF 100 MCG/2 ML VIAL ONE ×2 (13:49→17:49)
[2023-08-08] MEDS ORDERED: MIDAZOLAM HCL 1 MG/ML 2ML VIAL ONE (13:49)
--- NOTE | 2023-08-08 14:06 | History & Physical Report ---
Date of Service August 08, 2023 Assessment & Plan (1) Open fracture of left distal radius and ulna: Plan: Radiographs hand wrist and forearm are reviewed and demonstrate a comminuted fracture of the left distal radius and ulna with apex dorsal angulation. The ulna is comminuted. I believe that this is likely an open fracture. Probably of the ulna. At this point no open fracture care was commenced. I ordered a tetanus update and Ancef 3 g. I would like to anesthetize the wrist to try to realign it splinted and get a CT scan. I spoke with the patient as well as her daughter who is a PA here in the ER. We talked about the possibilities. I would recommend surgery to irrigate and debride and either fix definitively with plates and screws etc. or apply an external fixator. If the fracture was significantly comminuted and might require the expertise of a hand specialist I may consider the Ex-Fix. If the geometry cannot be assessed preoperatively then we may need to do the same until definitive fracture type can be identified. They agreed to proceed. An informed consent was obtained. The operative site was marked with my initials. 10 cc of 1% plain lidocaine was injected into the left distal radius and ulna fracture sites for hematoma block. Half in each location. After adequate analgesia I applied longitudinal traction with dorsally directed force over the distal radius fragment to affect a reasonable reduction which was not stable. I took multiplanar fluoroscopic images which confirmed a very comminuted fracture of the ulna and distal radius. The radius looked like it was split but not displaced in the sagittal plane but split and displaced in the coronal plane. The abrasion was cleaned and gauze was applied. Cast padding was applied and then an splint. Sugar-tong splint. The images were saved. I do not think the CAT scan will be useful at this point and I would plan on applying the external fixator washing it out and then planning definitive fixation subsequently. This is discussed. We talked about risk benefits rehab and recovery. The informed consent was done. Her post reduction neurovascular function showed intact sensation and capillary refill and she had 4+ to 5- out of 5 motor function for median radial and ulnar nerve. She can abduct and cross her fingers now. Chest x-ray and EKG are pending. Her past medical history and labs are noted. History of Present Illness Primary Care Provider: Tomasa Dc MD The patient is 73 years old. [id number]. Tripped and fell. Landed on left wrist. The wrist bent underneath. Positive bleeding. The injury happened at about 10:00. No prior history of left wrist injuries. Brought to the ER x- rays showed a fracture and I was consulted to assist.Pain isolated to the left wrist. No other injuries reported. No numbness or tingling. Allergies Allergy/AdvReac Type Severity Reaction Status Date / Time No Known Drug Allergies Allergy Verified 05/12/23 14:00 Home Medications Medication Instructions Recorded Confirmed Type latanoprost 0.005 % eye drops 1 drp ophthalmic (eye) DAILY 04/15/20 05/12/23 History tramadol 50 mg tablet 50 mg PO DAILY PRN back pain #30 02/05/21 05/12/23 Rx tabs metformin 500 mg tablet,extended 1,000 mg (2 x 500 mg) PO QPM 90 05/05/22 05/12/23 Rx release 24hr (osmotic) days #180 tabs lisinopril 10 mg tablet See Rx Instructions .Route 01/04/23 05/12/23 Rx .COMPLEX #90 tabs omeprazole 40 mg capsule,delayed 40 mg PO DAILY #90 caps 01/04/23 05/12/23 Rx release simvastatin 10 mg tablet See Rx Instructions .Route 06/25/23 Rx .COMPLEX #90 tabs Past Med/Surg History Medical History (Updated 08/08/23 @ 14:03 by Parth Veras MD) Asymmetric SNHL (sensorineural hearing loss) Salgado's esophagus Eosinophilic esophagitis Essential hypertension Hyperlipidemia Meniere's disease, left ear Prediabetes Left ureteral calculus Surgical History History of colonoscopy Longitudinal reduction defect of left femur Hx of cataract surgery History of knee replacement History of hip replacement H/O tooth extraction Hx of tonsillectomy H/O tubal ligation Hx of total knee arthroplasty H/O esophagogastroduodenoscopy History of colposcopy Hx of cholecystectomy Family History Father Coronary heart disease Hypertension Unknown Hypertension Cancer Cardiac disorder Sister Cerebral aneurysm Mother Colon cancer Aunt Colon cancer Denies family history of Ovarian cancer Prostate cancer FH: deafness or hearing loss Allergies Myocardial infarction Adverse anesthesia outcome Breast cancer Sinusitis Bleeding disorder Stroke Asthma Social History Smoking Status: Never smoker Tobacco Type: Cigarettes Age Started Using Tobacco: 18; Age Quit Using Tobacco: 37; packs per day: 1; Second Hand Exposure: No; Do You Dip or Chew Tobacco: No; Hx Alcohol Use: Yes Alcohol type: wine Alcohol Intake Frequency: 2-4 x/Month Hx Substance Use: No Preferred Language: Afghan Communication Ability: Effective Visual Impairment: No Limitations Hearing Ability: Normal marital status: Current Living Situation: Spouse current occupational status: retired Feels Safe at Home: Yes Childhood Exposure to Second-Hand Smoke: Yes Diet: regular Dental Care, Regularly: Yes Physical Activity Frequency: 1-2 Times per Week Seatbelt Use: always Sunscreen Use: Yes Review of Systems Review of Systems: No bleeding or blood clots. Stroke or seizure. Heart attack lung liver or kidney disease. No staph or MRSA infections and no allergies to metals.She has had her tonsils and gallbladder removed. She has had a total hip and both total knees.No problems with surgery Physical Exam Physical Exam: There is an apex dorsal deformity of the left wrist. There is a abrasion over the dorsal ulnar side of the wrist about 1 x 2 cm with a 2 to 3 mm central area where there is active bleeding and fat globules.Sensation intact. Capillary refill less than 2 seconds. Radial pulse 1+. The elbow forearm and hand are otherwise nontender. She can extend her thumb abduct her thumb but cannot abduct or abduct her fingers. Median and radial strength is 4- out of 5. Respiratory: Chest is clear to auscultation bilaterally Cardiovascular: Heart is regular in rate and rhythm without identified murmur. Gastrointestinal (Abdomen): The abdomen is soft nontender with active bowel sounds Results & Data Results & Data Vital Signs (Past 12 Hours) Vital Signs Temp Pulse Resp BP Pulse Ox O2 Del Method 08/08/23 13:30 83 14 99 08/08/23 13:26 141/67 H 08/08/23 13:26 81 16 99 08/08/23 13:15 86 14 100 08/08/23 13:00 81 15 96 08/08/23 12:45 64 14 96 08/08/23 12:30 70 15 97 08/08/23 12:00 70 17 98 08/08/23 11:35 78 08/08/23 11:30 76 16 178/69 H 88 L 08/08/23 11:28 78 14 98 08/08/23 11:02 36.6 C 82 22 182/71 H 98 Room Air Laboratory Results Laboratory Results WBC 6.14 K/ul (4.8-10.8) 08/08/23 11:40 RBC 4.49 M/uL (4.20-5.40) 08/08/23 11:40 Hgb 13.4 g/dl (12.0-16.0) 08/08/23 11:40 Hct 39.8 % (37.0-47.0) 08/08/23 11:40 MCV 88.6 fL (80.0-100.0) 08/08/23 11:40 MCH 29.8 pg (25.0-34.0) 08/08/23 11:40 MCHC 33.7 g/dL (32.0-36.0) 08/08/23 11:40 RDW Std Deviation 42.1 fL (36.4-46.3) 08/08/23 11:40 RDW Coeff of Mckayla 13.0 % (11.5-14.5) 08/08/23 11:40 Plt Count 205 K/uL (130-400) 08/08/23 11:40 MPV 10.1 fL (9.4-12.4) 08/08/23 11:40 Immature Gran % (Auto) 0.3 % 08/08/23 11:40 Neut % (Auto) 62.8 % 08/08/23 11:40 Lymph % (Auto) 27.5 % 08/08/23 11:40 [place] % (Auto) 6.7 % 08/08/23 11:40 Eos % (Auto) 2.0 % 08/08/23 11:40 Baso % (Auto) 0.7 % 08/08/23 11:40 Neut # (Auto) 3.86 K/uL (1.40-6.50) 08/08/23 11:40 Lymph # (Auto) 1.69 K/uL (1.20-3.40) 08/08/23 11:40 [place] # (Auto) 0.41 K/uL (0.11-0.59) 08/08/23 11:40 Eos # (Auto) 0.12 K/uL (0.00-0.50) 08/08/23 11:40 Baso # (Auto) 0.04 K/uL (0.00-0.20) 08/08/23 11:40 Immature Gran # (Auto) 0.02 K/uL (0.01-0.20) 08/08/23 11:40 Sodium 139 mmol/L (136-145) 08/08/23 11:40 Potassium 3.7 mmol/L (3.5-5.1) 08/08/23 11:40 Chloride 105 mmol/L (98-107) 08/08/23 11:40 Carbon Dioxide 25 mmol/L (21-32) 08/08/23 11:40 Anion Gap 9 (3-11) 08/08/23 11:40 BUN 16 mg/dl (6-23) 08/08/23 11:40 Creatinine 0.75 mg/dl (0.6-1.2) 08/08/23 11:40 Est Cr Clr Drug Dosing 88.5 ml/min 08/08/23 11:40 Est GFR ( Amer) 92.3 ml/min 08/08/23 11:40 Est GFR (Non-Af Amer) 79.6 ml/min 08/08/23 11:40 BUN/Creatinine Ratio 21.3 (10-20) H 08/08/23 11:40 Glucose 131 mg/dl (70-99(Fasting)) H 08/08/23 11:40 Calcium 9.0 mg/dl (8.6-10.3) 08/08/23 11:40 Impressions Forearm X-Ray 08/08/23 11:21 LEFT FOREARM 2 VIEWS; LEFT WRIST 3 VIEWS; LEFT HAND 3 VIEWS CLINICAL HISTORY: Left arm injury. FINDINGS: AP and lateral views of the left forearm, 3 views of the left wrist, and 3 views of the left hand are obtained. No prior studies are available for comparison at the time of dictation. The skeletal structures are osteopenic. There is an impacted and comminuted fracture of the distal radial metaphysis with intra-articular extension and volar displacement of fragments. There is also mild overriding of fragments. There is a comminuted horizontal fracture of the distal ulnar metadiaphysis. There is ulnar sided displacement of the distal fragment by 6 mm, apex dorsal angulation, and approximately 2 cm of overriding of fragments. There is also an avulsion fracture of the ulnar styloid. Significant overlying soft tissue edema is observed. The proximal radius and ulna appear intact. The elbow joint is grossly maintained. The radiocarpal articulation is preserved. No additional fracture there is seen involving the wrist or hand. 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 IMPRESSION: 1. Distal radial and ulnar fractures as above. 2. The proximal radius and ulna appear intact. 3. No additional fracture is seen involving the wrist or hand. Electronically signed by: Tim Yadav M.D. 08/08/2023 1:26 PM Hand X-Ray 08/08/23 11:21 LEFT FOREARM 2 VIEWS; LEFT WRIST 3 VIEWS; LEFT HAND 3 VIEWS CLINICAL HISTORY: Left arm injury. FINDINGS: AP and lateral views of the left forearm, 3 views of the left wrist, and 3 views of the left hand are obtained. No prior studies are available for comparison at the time of dictation. The skeletal structures are osteopenic. There is an impacted and comminuted fracture of the distal radial metaphysis with intra-articular extension and volar displacement of fragments. There is also mild overriding of fragments. There is a comminuted horizontal fracture of the distal ulnar metadiaphysis. There is ulnar sided displacement of the distal fragment by 6 mm, apex dorsal angulation, and approximately 2 cm of overriding of fragments. There is also an avulsion fracture of the ulnar styloid. Significant overlying soft tissue edema is observed. The proximal radius and ulna appear intact. The elbow joint is grossly maintained. The radiocarpal articulation is preserved. No additional fracture there is seen involving the wrist or hand. 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 IMPRESSION: 1. Distal radial and ulnar fractures as above. 2. The proximal radius and ulna appear intact. 3. No additional fracture is seen involving the wrist or hand. Electronically signed by: Tim Yadav M.D. 08/08/2023 1:26 PM Wrist X-Ray 08/08/23 11:21 LEFT FOREARM 2 VIEWS; LEFT WRIST 3 VIEWS; LEFT HAND 3 VIEWS CLINICAL HISTORY: Left arm injury. FINDINGS: AP and lateral views of the left forearm, 3 views of the left wrist, and 3 views of the left hand are obtained. No prior studies are available for comparison at the time of dictation. The skeletal structures are osteopenic. There is an impacted and comminuted fracture of the distal radial metaphysis with intra-articular extension and volar displacement of fragments. There is also mild overriding of fragments. There is a comminuted horizontal fracture of the distal ulnar metadiaphysis. There is ulnar sided displacement of the distal fragment by 6 mm, apex dorsal angulation, and approximately 2 cm of overriding of fragments. There is also an avulsion fracture of the ulnar styloid. Significant overlying soft tissue edema is observed. The proximal radius and ulna appear intact. The elbow joint is grossly maintained. The radiocarpal articulation is preserved. No additional fracture there is seen involving the wrist or hand. 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 IMPRESSION: 1. Distal radial and ulnar fractures as above. 2. The proximal radius and ulna appear intact. 3. No additional fracture is seen involving the wrist or hand. Electronically signed by: Tim Yadav M.D. 08/08/2023 1:26 PM Code Status & VTE Plan VTE Prophylaxis Plan Reason for no VTE drug order: Treatment not tolerated
--- NOTE | 2023-08-08 14:10 | XRay Report ---
SINGLE VIEW CHEST CLINICAL HISTORY: Dyspnea. Preoperative examination FINDINGS: An AP, portable, upright chest radiograph is compared to study dated 01/19/2014. The heart i s enlarged noting atherosclerotic calcification of the thoracic aorta. The pulmonary vasculature is n oncongested. Chronic interstitial thickening is similar to previous. The lungs and pleural spaces are clear. No pneumothorax is seen. The skeletal structures are osteopenic. There are chronic/healed rig ht-sided rib fractures. Arthritic change is noted in shoulders and spine. IMPRESSION: Cardiomegaly with no active disease in the chest. ACT 112: Negative or not required by law. Electronically signed by: Tim Yadav M.D. 08/08/2023 2:07 PM
--- NOTE | 2023-08-08 14:25 | Fluoroscopy Report ---
INTRAOPERATIVE RADIOGRAPHS CLINICAL HISTORY: Closed reduction of the left wrist Fluoro time: 20 seconds Ka,r: 0.644 mGy FINDINGS: 18 spot fluoroscopic views of the left wrist are correlated with radiograph performed the 08/08/2023. Again seen are comminuted fractures of the distal radius and ulna. There is signi ficantly improved alignment status post external fixation. There is persistent overriding of the dist al ulnar fragments as well as displaced radial fragment. Casting material has been placed on the jose alejandro l images. IMPRESSION: Improved alignment of distal radial and ulnar fractures status post closed reduction. Electronically signed by: Tim Yadav M.D. 08/08/2023 2:22 PM
[2023-08-08] MEDS ORDERED: BUPIVACAINE 0.5 % 5 MG/1 ML MPF 30ML VIAL ONE (14:35)
[2023-08-08] MEDS ORDERED: ATROPINE SULFATE 0.1 MG/ML 10ML SYR IV PRN (15:13)
[2023-08-08] MEDS ORDERED: KETOROLAC 30 MG/ML VIAL IV PRN (15:13)
[2023-08-08] MEDS ORDERED: PROMETHAZINE HCL 6.25 MG in SODIUM CHLORIDE 0.9% 50 ML IV PRN (15:13)
[2023-08-08] MEDS ORDERED: ONDANSETRON INJ 2 MG/ML 2 ML VIAL IV PRN ×2 (15:13→20:08)
--- NOTE | 2023-08-08 18:02 | Fluoroscopy Report ---
INTRAOPERATIVE RADIOGRAPHS CLINICAL HISTORY: External fixator placement. Fluoro time: 50 seconds Ka,r: 1.63 mGy FINDINGS: 9 spot fluoroscopic views of the left wrist are correlated with radiographs performed the s capo date 08/08/2023. Again seen are comminuted fractures of the distal radius and ulna. An external f ixation device is placed extending from the radial shaft to the second metacarpal. Alignment is signi ficantly improved. IMPRESSION: Intraoperative images from external fixator placement in the left wrist. Electronically signed by: Tim Yadav M.D. 08/08/2023 6:01 PM
--- NOTE | 2023-08-08 18:17 | Operative Report ---
Post Operative Report Pre & Post Diagnosis Operation Date: 08/08/23 14:30 Pre-Op Diagnosis: Grade 1 Open fracture of left distal radius and ulna Post-Op Diagnosis: Grade 1 Open fracture of left distal radius and ulna I identified the patient and participated in the time-out.: Yes Procedure Operation Date: 08/08/23 14:30 Actual Procedures p Irrigation and Debridement Left Wrist and Closed Reduction Internal Fixation with Application of External Fixator Left Wrist(Left) - Parth Veras MD Surgeon Dr Veras Strategic Debriefing Specialist Bianca Benz PA-C Estimated Blood Loss 20 Findings Consistent with Post-Op Diagnosis Specimens none Description of Procedure Pt was taken to operating room and properly positioned for procedure. Refer to anesthesia's note for anesthesia used. Pt was given pre-op antibiotics. Prepped and draped in sterile fashion. I was present during the entire case and assisted with positioning, instrumentation, closure and dressings. Please see surgeon's op report for further detail. Pt was awake and transferred to PACU in stable condition I attest to the content of the Intraoperative Record and any orders documented therein. Any exceptions are noted below.
--- NOTE | 2023-08-08 18:22 | Operative Report ---
Post Operative Report Pre & Post Diagnosis Operation Date: 08/08/23 14:30 Pre-Op Diagnosis: Grade 1 Open fracture of left distal radius and ulna Post-Op Diagnosis: Grade 1 Open fracture of left distal radius and ulna I identified the patient and participated in the time-out.: Yes Procedure Operation Date: 08/08/23 14:30 Actual Procedures p Irrigation and Debridement Left Wrist and Closed Reduction with Application of External Fixator Left Wrist(Left) - Parth Veras MD Surgeon Parth Veras MD Cro GABRIEL Neil no resident or fellow available Estimated Blood Loss 20 Findings Consistent with Post-Op Diagnosis Specimens None Anesthesia Type General Regional Complications none Disposition Accompanied Patient To Recovery: No Disposition: Recovery Room Indications Hi the patient is 73 years old. She fell injuring her left wrist. It was determined in the emergency room that this is highly likely an open fracture as there is a abrasion dorsally with a 2 to 3 mm puncture wound that is oozing blood and fat. She received tetanus and antibiotics. I recommended irrigation debridement and stabilization. Given the fluoroscopic evaluation prior to surgery there was substantial comminution of both fractures. I think she would benefit by having a external fixator placed followed by CT scan prior to definitive management. Description of Procedure Informed consent. Patient identified. Preop surgical timeout performed. I marked the operative site with my initials. Preop antibiotics were given. She was taken to the OR positioned supine on the OR table with the left arm on a hand table. The anesthetic was administered. The arm was kept under traction at all times. A nonsterile tourniquet was applied to the left arm. The arm was large. The tourniquet was not utilized during the case. Her left wrist was grossly unstable with the aforementioned abrasion and puncture wound dorsally and ulnarly. DVT prophylaxis intraoperatively with foot pumps. Postoperatively mobility. Bony prominences were inspected and padded fluoroscopic guidance was utilized throughout the surgical procedure I inserted a hemostat into the dorsal wound and it appeared to communicate directly down to the ulna. I then made a 5 cm incision on the ulnar side of the wrist over what I thought was the area of the fracture. However the fracture was located little bit more proximally and I had to extend the incision in that direction. I bluntly dissected down to subcutaneous tissues. The DRUJ initially was identified. Once confirmed fluoroscopically I dissected proximally and identified the fracture site. I confirmed this fluoroscopically. I did not encounter the dorsal cutaneous branch of the ulnar nerve. Fascia over the fracture site was opened and is much as to gain access to the fracture site and inserted a bulb syringe. No gross contamination was noted. I irrigated this with 2 L of sterile saline.I then went ahead and made a small longitudinal incision in the area of the puncture wound and irrigated it with 2 bulb syringes. I then went ahead and made a volar Rudy approach to the distal radius. I incised from the distal wrist crease about 10 cm proximally and did electrocautery. I identified the flexor carpi radialis incised the fascia superficial to it then retracted ulnarward and incised the fascia at the base of the FCR sheath. I then inserted a blunt tipped retractor to expose the interval between the FCR and the radial artery. Bluntly I elevated up the flexor pollicis longus at its distal extent and then identified the pronator quadratus. It was largely disrupted by incised along its radial border and then distally transversely proximal to the joint. The self-retaining retractor was utilized to hold the pronator quadratus out of the way. The fracture site was readily visualized and then I carefully opened this up by elevating the volar fracture fragment with a pickup and applying longitudinal traction giving access to the distal radial fracture site. I irrigated with 2 L of sterile normal saline bulb syringe. I then applied provisional skin closure stitches for the ulnar and radial incision. I then went ahead and using fluoroscopic guidance made an incision over the base of the second metacarpal. I bluntly dissected down to the base of the metacarpal. I inserted a pin for the Synthes small Ex-Fix. I confirmed its position fluoroscopically and then using the guide inserted the second 1 distally centered on the shaft of the second metacarpal. I then I provisionally applied the Ex-Fix and buttonhole marker the appropriate distance to make an incision proximally over the radius. I did so bluntly dissected down through a 1+ inch fat layer to get to the bone. I bluntly dissected to expose the bone and inserted Hohmann retractors as I did distally. I identified the center of the bone and inserted 2 pins using the provided guide. I then assembled the fixator as close to the skin as possible without any pressure on the skin. The pin positions were confirmed fluoroscopically in the AP and lateral planes. I then went ahead and applied the fixator. Gentle longitudinal distraction was applied and the fixator was tightened down after assessing alignment fluoroscopically. Both fractures were reasonably well reduced particularly on the AP. Arthritis of the DRUJ was noted. On the lateral view there was also good alignment but it appeared that there was increased concavity of the distal radial articular surface and perhaps some anterior to posterior narrowing. I think the goals of the procedure to irrigate and provisionally stabilize this substantially comminuted distal radius and ulna fracture with intra-articular extension was accomplished. There was a coronal split as well as a sagittal split within the distal radius. I think she would benefit from having a CT scan done. All wounds were then again reirrigated. The puncture wound that I opened was reapproximated with 1 simple stitch. I made relaxing incisions around the pins were necessary and then closed this with 3-0 and 4-0 nylon using simple and horizontal mattress stitches. I then closed the radial and ulnar incisions at the skin level only with 3 oh and 4-0 nylon simple and horizontal mattress stitches. The fixator was checked for tightness. The wrist was neutral. I can flex and extend the fingers all the way. The arm was cleaned with wet and dry sponges saw sterile dressing was applied consisting of Xeroform gauze pads around the pins 4 x 4's soft wrap Dalton wrap. Patient awakened from anesthesia difficulty taken to recovery room in stable condition there were no specimens complications. Counts were correct and blood loss is estimated to be 20 cc. At the conclusion of the operation spoke to patient's daughter informed her of my findings and postop instructions and plan were discussed. At this time she will be admitted to the hospital elevate the hand and apply ice. Ancef at a weight based appropriate dose x [address] scan of the left wrist and possible consultation with hand surgery. At the conclusion the procedure mixture 1% lidocaine and half percent Marcaine was injected into the skin of all incisions. I attest to the content of the Intraoperative Record and any orders documented therein. Any exceptions are noted below.
[2023-08-08] MEDS ORDERED: HYDROmorphone INJ 1 MG/ML SYRINGE ONE (18:55)
[2023-08-08] MEDS: HYDROmorphone INJ 1 MG/ML SYRINGE IV PRN ×2 (18:55→19:05)
--- NOTE | 2023-08-08 18:55 | Anesthesiology Progress Note ---
Date of Service August 08, 2023 Anesthesia Post Procedure Vital Signs Vital Signs: Temp Pulse Pulse Resp BP BP Pulse Ox 08/08/23 18:25 77 17 156/82 H 100 08/08/23 18:17 36.6 C 78 19 151/76 H 98 08/08/23 13:30 83 14 99 08/08/23 13:26 141/67 H 08/08/23 13:26 81 16 99 08/08/23 13:15 86 14 100 08/08/23 13:00 81 15 96 08/08/23 12:45 64 14 96 08/08/23 12:30 70 15 97 08/08/23 12:00 70 17 98 08/08/23 11:35 78 08/08/23 11:30 76 16 178/69 H 88 L 08/08/23 11:28 78 14 98 08/08/23 11:02 36.6 C 82 22 182/71 H 98 O2 Del Method O2 Flow Rate 08/08/23 18:25 Oxymask 3 08/08/23 18:17 Oxymask 6 08/08/23 13:30 08/08/23 13:26 08/08/23 13:26 08/08/23 13:15 08/08/23 13:00 08/08/23 12:45 08/08/23 12:30 08/08/23 12:00 08/08/23 11:35 08/08/23 11:30 08/08/23 11:28 08/08/23 11:02 Room Air Pain Intensity Left Arm: Pain Intensity: 2 Transfer of Care Handoff Completed per policy Notes Mental Status: alert / awake / arousable Patient Amnestic to Procedure: Yes Nausea / Vomiting: adequately controlled Pain: adequately controlled Airway Patency, RR, SpO2: stable & adequate BP & HR: stable & adequate Hydration State: stable & adequate Anesthetic Complications: no major complications apparent
[2023-08-08] MEDS ORDERED: diphenhydrAMINE Capsule 25 MG CAP PO PRN (20:08)
[2023-08-08] MEDS ORDERED: traMADol HCL 50 MG TABLET PO PRN (20:08)
[2023-08-08] MEDS ORDERED: ACETAMINOPHEN 325 MG TAB PO PRN (20:08)
[2023-08-08] MEDS ORDERED: METOCLOPRAMIDE HCL INJ 5 MG/ML 2 ML VIAL IV PRN (20:08)
[2023-08-08] MEDS ORDERED: KETOROLAC TROMETHAMINE 15 MG/ML VIAL IV PRN (20:14)
--- NOTE | 2023-08-08 21:37 | CT Scan Report ---
Exam(s): CT LEFT WRIST Without Contrast EXAM: CT Left Upper Extremity Without Intravenous Contrast, Wrist CLINICAL HISTORY: Reason for exam: post op left wrist ex fix. TECHNIQUE: Axial computed tomography images of the left wrist without intravenous contrast. CTDI is 110.23 mGy and DLP is 1637.07 mGy-cm. Automated exposure control was utilized for the study. A dose lowering technique was utilized adhering to the principles of ALARA. COMPARISON: No relevant prior studies available. FINDINGS: Bones/joints: Comminuted fracture through the distal radius, extending to the radial shaft (Colles' fracture). Comminuted fracture through the distal diaphysis of the ulna. No dislocation. Soft tissues: Moderate soft tissue edema and subcutaneous gas likely from recent surgery. IMPRESSION: 1. Comminuted fracture through the distal radius, extending to the radial shaft (Colles' fracture). 2. Comminuted fracture through the distal diaphysis of the ulna. 3. Moderate soft tissue edema and subcutaneous gas likely from recent surgery. Electronically signed by: Christine Kay MD 08/08/23 21:36 PM
[2023-08-08] MEDS: SODIUM CHLORIDE 0.9% 1,000 ML IV SCH (21:38)
[2023-08-08] MEDS: SIMVASTATIN 10 MG TAB PO SCH (21:39)
[2023-08-08] MEDS: ceFAZolin 2000MG 2,000 MG/15 ML SYR IV SCH (21:39)
[2023-08-08] MEDS: DOCUSATE SODIUM 100 MG CAP PO SCH (21:39)
[2023-08-09] MEDS ORDERED: GLUCOSE 40% GEL 15 GM TUBE PO PRN (02:35)
[2023-08-09] MEDS ORDERED: GLUCOSE 10 TAB/TUBE PO PRN (02:35)
[2023-08-09] MEDS ORDERED: CARBOHYDRATES FOR HYPOGLYCEMIA PO PRN (02:35)
[2023-08-09] MEDS ORDERED: GLUCAGON FOR INJ 1 MG VIAL SQ PRN (02:35)
[2023-08-09] MEDS ORDERED: DEXTROSE 50% 50 ML SYRINGE IV PRN (02:35)
--- NOTE | 2023-08-09 02:42 | Hospitalist Consultation ---
Date of Consultation August 09, 2023 Assessment & Plan (1) Open fracture of left distal radius and ulna: Status post ORIF-management per orthopedics/admitting group (2) Diabetes 1.5, managed as type 2: Mild she is on metformin 500 mg at at bedtime only. Her last blood glucose here few hours ago was 121 mg/dL. Will restart her metformin on the evening of the . Will order Accu-Cheks before meals and at bedtime we have written orders to be notified if blood glucose less than 80 or greater than 180. If she should fall outside these parameters and need intervention with subcutaneous insulin during her hospitalization we will intervene at that time. (3) Essential hypertension: Continue home medications in the form of lisinopril (4) Hyperlipidemia: Continue home medications in the form of Zocor (5) Obesity: Chronic/stable Plan As described above. Please refer to orders for further planning. We thank you for the opportunity to participate in the care of Mrs. Espinosa. Will continue to follow her during her hospitalization as she continues to convalesce her acute orthopedic fracture. History of Present Illness Reason for Consultation: Co. medical management diabetes hypertension dyslipidemia status post open wrist fracture Attending Physician: Parth Veras MD History of Present Illness Pleasant 74-year-old female had a mechanical fall on yesterday's date August 08, 2023 falling on her outstretched left arm which ended up underneath her she had a open fracture of her distal ulnar radial complex. She went straight to the OR with orthopedics we are consulted late evening for Co. medical management. Patient denies any other injuries including to her head and she denies any loss of consciousness pre or post falls was strictly mechanical fall. Allergies Allergy/AdvReac Type Severity Reaction Status Date / Time No Known Drug Allergies Allergy Verified 08/08/23 14:38 Home Medications Medication Instructions Recorded Confirmed Type latanoprost 0.005 % eye drops 1 drp ophthalmic (eye) DAILY 04/15/20 08/08/23 History tramadol 50 mg tablet 50 mg PO DAILY PRN back pain #30 02/05/21 08/08/23 Rx tabs lisinopril 10 mg tablet 10 mg PO QAM 08/08/23 08/08/23 History metformin 500 mg tablet,extended 500 mg PO HS 08/08/23 08/08/23 History release 24hr (osmotic) omeprazole 40 mg capsule,delayed 40 mg PO QAM 08/08/23 08/08/23 History release simvastatin 10 mg tablet 10 mg PO HS 08/08/23 08/08/23 History Patient History Medical History (Updated 08/09/23 @ 02:40 by Cleveland Madison, PhD, DO) Diabetes 1.5, managed as type 2 Asymmetric SNHL (sensorineural hearing loss) Salgado's esophagus Eosinophilic esophagitis Essential hypertension Hyperlipidemia Meniere's disease, left ear Prediabetes Left ureteral calculus Surgical History History of colonoscopy Longitudinal reduction defect of left femur Hx of cataract surgery History of knee replacement History of hip replacement H/O tooth extraction Hx of tonsillectomy H/O tubal ligation Hx of total knee arthroplasty H/O esophagogastroduodenoscopy History of colposcopy Hx of cholecystectomy Family History Father Coronary heart disease Hypertension Unknown Hypertension Cancer Cardiac disorder Sister Cerebral aneurysm Mother Colon cancer Aunt Colon cancer Denies family history of Ovarian cancer Prostate cancer FH: deafness or hearing loss Allergies Myocardial infarction Adverse anesthesia outcome Breast cancer Sinusitis Bleeding disorder Stroke Asthma Social History Smoking Status: Former smoker Tobacco Type: Cigarettes Age Started Using Tobacco: 18; Age Quit Using Tobacco: 37; packs per day: 1; Second Hand Exposure: No; Do You Dip or Chew Tobacco: No; Hx Alcohol Use: Yes Alcohol type: wine Alcohol Intake Frequency: 2-4 x/Month Hx Substance Use: No Preferred Language: Maltese Communication Ability: Effective Visual Impairment: No Limitations Hearing Ability: Normal Kettle Chipper Required: No Beliefs That Will Affect Care: None marital status: Current Living Situation: Spouse Current Living Situation Comment: home with current occupational status: retired Other Information That Helps Us Care for You: No Feels Safe at Home: Yes Safety Concerns: Feels Safe At This Time Childhood Exposure to Second-Hand Smoke: Yes Diet: regular Dental Care, Regularly: Yes Physical Activity Frequency: 1-2 Times per Week Seatbelt Use: always Sunscreen Use: Yes Assistive Devices: Cane and Glasses Review of Systems Review of Systems: A 10 point review of system was obtained and unless otherwise stated here or in history of present illness are negative and noncontributory to chief complaint. Physical Exam Physical Exam: In general: This is a pleasant 73-year-old white female who is alert and oriented x 3 this evening when I examine her she interacts appropriately she is in no acute distress. HEENT: Normocephalic atraumatic pupils are equal round and reactive to light bilaterally. No scleral icterus no conjunctival injection external auditory canals are patent septum is in the midline nose is without discharge oral mucosa is pink and moist without lesion. NECK: Supple no rigidity no lymphadenopathy no thyromegaly no carotid bruits no JVD no masses. HEART: Regular rate and rhythm I do not appreciate any ectopy or rub. No murmur. LUNGS: Clear to auscultation bilaterally and anteriorly with no evidence of adventitious sounds/wheezes rales or rhonchi. ABDOMEN: Soft nontender, no rebound, no peritoneal signs, positive bowel sounds, no appreciable organomegaly. EXTREMITIES: Intact neurovascularly, no peripheral cyanosis, clubbing or edema. -Left upper extremity is currently dressed postoperatively. NEUROLOGICAL: Cranial nerves II through XII are grossly intact with no focal deficit elicited upon examination. No tremor. Results & Data Results & Data Vital Signs (Past 12 Hours) Vital Signs Temp Pulse Pulse Resp BP Pulse Ox O2 Del Method 08/09/23 02:15 36.5 C 84 18 113/70 95 Room Air 08/08/23 22:35 36.3 C L 75 16 116/55 L 95 Room Air 08/08/23 21:23 36.3 C L 74 16 146/80 H 95 Room Air 08/08/23 20:30 36.3 C L 58 L 18 149/76 H 95 Room Air 08/08/23 20:15 36.4 C L 44 L 18 149/68 H 94 Room Air 08/08/23 20:00 36.4 C 56 L 16 144/83 H 96 Room Air 08/08/23 19:45 65 16 157/73 H 94 Room Air 08/08/23 19:30 68 23 144/77 H 96 Room Air 08/08/23 19:15 70 17 141/61 H 94 Room Air 08/08/23 19:05 36.9 C 82 16 149/75 H 97 Room Air 08/08/23 18:55 71 18 163/91 H 94 Room Air 08/08/23 18:45 80 14 160/90 H 96 Room Air 08/08/23 18:35 73 19 161/95 H 96 Room Air 08/08/23 18:25 77 17 156/82 H 100 Oxymask 08/08/23 18:17 36.6 C 78 19 151/76 H 98 Oxymask O2 Flow Rate 08/09/23 02:15 08/08/23 22:35 08/08/23 21:23 08/08/23 20:30 08/08/23 20:15 08/08/23 20:00 08/08/23 19:45 08/08/23 19:30 08/08/23 19:15 08/08/23 19:05 08/08/23 18:55 08/08/23 18:45 08/08/23 18:35 08/08/23 18:25 3 08/08/23 18:17 6 PG Care Time/CCT Total # of Minutes Spent Total Time Spent with Patient: Total time spent is greater than 50% in coordination of care (as documented) at patient's floor/unit and/or counseling patient: Coding Level of Care Code 57609 IN/OBS CONSULT LVL 3,45M Diagnoses Open fracture of left distal radius and ulna S52.502B; S52.602B Diabetes 1.5, managed as type 2 E13.9 Essential hypertension I10 Hyperlipidemia E78.5 Obesity E66.9
[2023-08-09] MEDS: ceFAZolin 2000MG 2,000 MG/15 ML SYR IV SCH ×3 (04:24→20:17)
[2023-08-09 07:25] LABS: Basophils # (auto) 0.01 K/uL (0.00-0.20); Basophils % (auto) 0.1 %; Hematocrit (blood only) 40.1 % (37.0-47.0); Hemoglobin 13.3 g/dl (12.0-16.0); Immature Granulocytes # (auto) 0.02 K/uL (0.01-0.20); Immature Granulocytes % (auto) 0.3 %; Lymphocytes # (auto) 0.77 K/uL (1.20-3.40); Lymphocytes % (auto) 11.5 %; Mean Corpuscular Hemoglobin 29.7 pg (25.0-34.0); Mean Corpuscular Hgb Conc 33.2 g/dL (32.0-36.0); Mean Corpuscular Volume 89.5 fL (80.0-100.0); Mean Platelet Volume 10.3 fL (9.4-12.4); Monocytes # (auto) 0.34 K/uL (0.11-0.59); Monocytes % (auto) 5.1 %; Neutrophils # (auto) 5.54 K/uL (1.40-6.50); Platelet Count 215 K/uL (130-400); RDW Standard Deviation 42.4 fL (36.4-46.3); Red Blood Count 4.48 M/uL (4.20-5.40); White Blood Count 6.68 K/ul (4.8-10.8)
[2023-08-09 07:35] LABS: Calcium 8.4 mg/dl (8.6-10.3); Est GFR (African American) 85.4 ml/min; Est GFR (Non-African American) 73.7 ml/min; Potassium 3.9 mmol/L (3.5-5.1)
[2023-08-09] MEDS: SODIUM CHLORIDE 0.9% 1,000 ML IV SCH (07:51)
[2023-08-09] MEDS: DOCUSATE SODIUM 100 MG CAP PO SCH ×2 (07:53→20:15)
[2023-08-09] MEDS: lisinopril 10 MG TAB PO SCH (07:53)
[2023-08-09] MEDS: LATANOPROST 0.005% OP SOLN 2.5 ML BTL OP SCH (07:53)
[2023-08-09] MEDS: PANTOprazole 40 MG TAB PO SCH (07:54)
[2023-08-09] MEDS ORDERED: CHOLECALCIFEROL 1,000 UNITS 25 MCG TAB PO SCH (09:00)
--- NOTE | 2023-08-09 09:30 | Orthopedic Progress Note ---
Date of Service August 09, 2023 Assessment & Plan (1) Open fracture of left distal radius and ulna: Plan: 73 year old female POD1 s/p Irrigation and Debridement Left Wrist and Closed Reduction with Application of External Fixator Left Wrist(Left) - Parth goodwin MD Keep sling in place, elevate hand/arm with pillows ICE prn Patient is able to freely wiggle her fingers Vitamin D Deficient - will need 50,000U weekly Keep dressing in place Pain control per primary DVT phx per primary CT reviewed by Dr Veras who recommends follow up outpatient with Hand Surgeon Dr Peng with [facility]. Likely d/c tomorrow Admission and Anticipated Discharge Date Admission Date: August 08, 2023 Subjective Pt seen and examined bedside. Reports she is overall doing well, pain controlled. No N/T. She says that her throat hurts from the tube. She says she feels a little chilled this morning but that is because the room is cold. Denies F, CP, SOB. Review of Systems Review of Systems: Per HPI Physical Exam Physical Exam: Patients sling fitting appropriately. Ice packed in place were removed to reveal upper extremity. Dressing is in tact, there is some bloody drainage on gauze under edna wrap but edna wrap is not saturated. She is able to wiggle all of her fingers and has opposition of thumb to pointer finger. SKin warm, pink and perfusable. Sensation in tact distally to light touch. Some bruising noted on the dorsum of her hand. Sling and ice packs re-applied after exam patient reported comfort. Results & Data Vital Signs (Past 12 Hours) Vital Signs Temp Pulse Resp BP Pulse Ox O2 Del Method 08/09/23 07:49 36.7 C 68 16 126/71 97 Room Air 08/09/23 02:15 36.5 C 84 18 113/70 95 Room Air 08/08/23 22:35 36.3 C L 75 16 116/55 L 95 Room Air Laboratory Results 08/09/23 08/09/23 08/08/23 Range/Units 07:58 06:48 20:12 WBC 6.68 (4.8-10.8) K/ul RBC 4.48 (4.20-5.40) M/uL Hgb 13.3 (12.0-16.0) g/dl Hct 40.1 (37.0-47.0) % MCV 89.5 (80.0-100.0) fL MCH 29.7 (25.0-34.0) pg MCHC 33.2 (32.0-36.0) g/dL RDW Std Deviation 42.4 (36.4-46.3) fL RDW Coeff of Mckayla 13.0 (11.5-14.5) % Plt Count 215 (130-400) K/uL MPV 10.3 (9.4-12.4) fL Immature Gran % (Auto) 0.3 % Neut % (Auto) 83.0 % Lymph % (Auto) 11.5 % Bowman % (Auto) 5.1 % Eos % (Auto) 0.0 % Baso % (Auto) 0.1 % Neut # (Auto) 5.54 (1.40-6.50) K/uL Lymph # (Auto) 0.77 L (1.20-3.40) K/uL Bowman # (Auto) 0.34 (0.11-0.59) K/uL Eos # (Auto) 0.00 (0.00-0.50) K/uL Baso # (Auto) 0.01 (0.00-0.20) K/uL Immature Gran # (Auto) 0.02 (0.01-0.20) K/uL Sodium 140 (136-145) mmol/L Potassium 3.9 (3.5-5.1) mmol/L Chloride 108 H (98-107) mmol/L Carbon Dioxide 25 (21-32) mmol/L Anion Gap 7 (3-11) BUN 13 (6-23) mg/dl Creatinine 0.80 (0.6-1.2) mg/dl Est Cr Clr Drug Dosing 76.0 ml/min Est GFR ( Amer) 85.4 ml/min Est GFR (Non-Af Amer) 73.7 ml/min BUN/Creatinine Ratio (10-20) Glucose (70-99(Fasting)) mg/dl POC Glucose 109 H (70-99) mg/dl Fasting Glucose 134 H (70-99) mg/dl Calcium 8.4 L (8.6-10.3) mg/dl 25-OH Vitamin D Total 12.3 L (30-100) ng/ml 08/08/23 08/08/23 Range/Units 18:21 11:40 WBC 6.14 (4.8-10.8) K/ul RBC 4.49 (4.20-5.40) M/uL Hgb 13.4 (12.0-16.0) g/dl Hct 39.8 (37.0-47.0) % MCV 88.6 (80.0-100.0) fL MCH 29.8 (25.0-34.0) pg MCHC 33.7 (32.0-36.0) g/dL RDW Std Deviation 42.1 (36.4-46.3) fL RDW Coeff of Mckayla 13.0 (11.5-14.5) % Plt Count 205 (130-400) K/uL MPV 10.1 (9.4-12.4) fL Immature Gran % (Auto) 0.3 % Neut % (Auto) 62.8 % Lymph % (Auto) 27.5 % Bowman % (Auto) 6.7 % Eos % (Auto) 2.0 % Baso % (Auto) 0.7 % Neut # (Auto) 3.86 (1.40-6.50) K/uL Lymph # (Auto) 1.69 (1.20-3.40) K/uL Bowman # (Auto) 0.41 (0.11-0.59) K/uL Eos # (Auto) 0.12 (0.00-0.50) K/uL Baso # (Auto) 0.04 (0.00-0.20) K/uL Immature Gran # (Auto) 0.02 (0.01-0.20) K/uL Sodium 139 (136-145) mmol/L Potassium 3.7 (3.5-5.1) mmol/L Chloride 105 (98-107) mmol/L Carbon Dioxide 25 (21-32) mmol/L Anion Gap 9 (3-11) BUN 16 (6-23) mg/dl Creatinine 0.75 (0.6-1.2) mg/dl Est Cr Clr Drug Dosing 88.5 ml/min Est GFR ( Amer) 92.3 ml/min Est GFR (Non-Af Amer) 79.6 ml/min BUN/Creatinine Ratio 21.3 H (10-20) Glucose 131 H (70-99(Fasting)) mg/dl POC Glucose 122 H (70-99) mg/dl Fasting Glucose (70-99) mg/dl Calcium 9.0 (8.6-10.3) mg/dl 25-OH Vitamin D Total 12.3 (30-100) ng/ml Diagnostic Findings Wrist CT 08/08/23 20:08 Exam(s): CT LEFT WRIST Without Contrast EXAM: CT Left Upper Extremity Without Intravenous Contrast, Wrist CLINICAL HISTORY: Reason for exam: post op left wrist ex fix. TECHNIQUE: Axial computed tomography images of the left wrist without intravenous contrast. CTDI is 110.23 mGy and DLP is 1637.07 mGy-cm. Automated exposure control was utilized for the study. A dose lowering technique was utilized adhering to the principles of ALARA. COMPARISON: No relevant prior studies available. FINDINGS: Bones/joints: Comminuted fracture through the distal radius, extending to the radial shaft (Colles' fracture). Comminuted fracture through the distal diaphysis of the ulna. No dislocation. Soft tissues: Moderate soft tissue edema and subcutaneous gas likely from recent surgery. IMPRESSION: 1. Comminuted fracture through the distal radius, extending to the radial shaft (Colles' fracture). 2. Comminuted fracture through the distal diaphysis of the ulna. 3. Moderate soft tissue edema and subcutaneous gas likely from recent surgery. Electronically signed by: Christine Kay MD 08/08/23 21:36 PM
--- NOTE | 2023-08-09 11:45 | Hospitalist Progress Note ---
Date of Service August 09, 2023 Assessment & Plan (1) Open fracture of left distal radius and ulna: Plan: Status post ORIF-management per orthopedics/admitting group -Vit D Deficiency (2) Diabetes 1.5, managed as type 2: Plan: -she is on metformin 500 mg at at bedtime only. -Hgb A1c 04/2023: 6.1 -Restart her metformin on the evening of the . - Accu-Cheks ACHS: notify if blood glucose less than 80 or greater than 180, may need insulin during stay. (3) Essential hypertension: Plan: Continue home Lisinopril (4) Hyperlipidemia: Plan: Continue home Zocor (5) Obesity: Plan: Chronic/stable Plan Dispo: continued inpatient stay, medically stable Thank you for allowing us to participate in the care of this patient, please reach out with any questions or concerns Admission and Anticipated Discharge Date Admission Date: August 08, 2023 Supervising Physician Co-Signing Physician Notes PA Supervision Note: I did not personally see or examine the patient today, but I verified all childress points of GABRIEL Bonilla's assessment and plan with the following exceptions/additions: None Subjective Patient sitting up in the chair, appears well. States pain in hand is controlled, but noticing some swelling/brusing on back of hand. Able to move fingers. Does have some sore throat s/p intubation and dry cough that she repor ts she has had for weeks. Denies CP or SOB. Review of Systems Review of Systems: All systems reviewed & are unremarkable except as noted in Subjective Physical Exam Physical Exam: General: WN/WD, NAD, VS as above Resp: normal respiratory effort, lungs clear to auscultation CV: RRR, no murmur, Abd: normal bowel sounds, non tender, no hepatosplenomegaly Extremities: left arm/wrist in slight, able to move all fingers but limited f lexion. Sensation intact. Mild Edema Neuro: A&O x3, Results & Data Results & Data Vital Signs (Past 12 Hours) Vital Signs Temp Pulse Resp BP Pulse Ox O2 Del Method 08/09/23 08:30 Room Air 08/09/23 07:49 36.7 C 68 16 126/71 97 Room Air 08/09/23 02:15 36.5 C 84 18 113/70 95 Room Air Laboratory Results CBC, chemistry, vit D reviewed PG Care Time/CCT Total # of Minutes Spent Total Time Spent with Patient: Total time spent is greater than 50% in coordination of care (as documented) at patient's floor/unit and/or counseling patient: Coding Level of Care Code None Diagnoses Open fracture of left distal radius and ulna S52.502B; S52.602B Diabetes 1.5, managed as type 2 E13.9 Essential hypertension I10 Hyperlipidemia E78.5 Obesity E66.9
[2023-08-09] MEDS: oxyCODONE/ACETAMINOPHEN 5mg/325mg TAB PO PRN ×2 (18:06→22:07)
--- NOTE | 2023-08-09 18:47 | Communication Note ---
Date of Service: August 09, 2023 I have review the patieint's xrays. If stable for discharge, please have the patient follow up with me on wednesday at [facility] office at 1 pm.
[2023-08-09] MEDS: SIMVASTATIN 10 MG TAB PO SCH (20:15)
[2023-08-09] MEDS ORDERED: metFORMIN HCL 500 MG TAB PO SCH (21:00)
[2023-08-10] MEDS: oxyCODONE/ACETAMINOPHEN 5mg/325mg TAB PO PRN ×3 (03:39→09:52)
[2023-08-10] MEDS: ceFAZolin 2000MG 2,000 MG/15 ML SYR IV SCH (04:49)
--- NOTE | 2023-08-10 05:50 | Electrocardiogram Report ---
Test Reason : Blood Pressure : / mmHG Vent. Rate : 084 BPM Atrial Rate : 084 BPM P-R Int : 178 ms QRS Dur : 072 ms QT Int : 394 ms P-R-T Axes : 057 035 031 degrees QTc Int : 465 ms Sinus rhythm with frequent Premature ventricular complexes Otherwise normal ECG When compared with ECG of 20-APR-2014 09:49, Premature ventricular complexes are now Present Confirmed by Sidney Abdalla ([id number]) on 08/10/2023 5:49:37 AM Referred By: REFERRED SELF Confirmed By:Sidney Abdalla
[2023-08-10] MEDS: DOCUSATE SODIUM 100 MG CAP PO SCH (08:14)
[2023-08-10] MEDS: PANTOprazole 40 MG TAB PO SCH (08:15)
[2023-08-10] MEDS: lisinopril 10 MG TAB PO SCH (08:15)
[2023-08-10] MEDS: LATANOPROST 0.005% OP SOLN 2.5 ML BTL OP SCH (08:15)
[2023-08-10] MEDS ORDERED: CHOLECALCIFEROL 1,000 UNITS 25 MCG TAB PO SCH (09:00)
--- NOTE | 2023-08-10 10:39 | Orthopedic Progress Note ---
Date of Service August 10, 2023 Assessment & Plan (1) Open fracture of left distal radius and ulna: Plan: 73 year old female POD 2s/p Irrigation and Debridement Left Wrist and Closed Reduction with Application of External Fixator Left Wrist(Left) - Parth goodwin MD Keep sling in place, elevate hand/arm with pillows ICE prn Patient is able to freely wiggle her fingers Vitamin D Deficient - will need 50,000U weekly Dressing changed this morning along with pin care Pain control with PO medication DVT not indicated Prescription for an antibiotic (Augmentin) was provided along with a prescription for pain medication. Patient will be discharged this morning and is scheduled to follow[place]. Peng [place] [facility] [place] Admission and Anticipated Discharge Date Admission Date: August 08, 2023 Subjective This 73-year-old female is day 2 status post Irrigation and Debridement Left Wrist and Closed Reduction with Application of External Fixator Left Wrist performed by Dr. Veras. Patient states she is doing very well today. She states her pain is well-controlled with the p.o. Percocet. Patient will be d ischarged this morning after her showing her how to do pin care and dressing changes. She has an appointment later this morning with Dr. Peng for further management of her fracture. Currently she denies chest pain, shortness of breath, fever, chills, sweats or numbness or tingling in her left upper extremity. She is very pleased with the treatment she has received thus far. Review of Systems Review of Systems: All systems reviewed & are unremarkable except as noted in Subjective Physical Exam Physical Exam: Left upper extremity: Dressings were removed and the patient is left wrist and forearm. She does have some mild oozing from the surgical incision sites. Pin sites were cleansed with a 50-50 mix of hydrogen peroxide and normal saline solution. All remaining incision sites were lightly padded with sterile saline wipes. New dressings were applied consisting of Xeroform gauze around the pins and over the incision sites. These areas were covered with sterile 4 x 4's as well as ABD pads. New Dalton bandages were applied over the external fixator. Patient tolerated this very well. Her daughter who is a PA in the emergency department was present and states that she will help her mother with dressing changes on a daily basis. Patient was able to fully flex and extend at her elbow. She had appropriate dexterity of her fingers. She was able to detect light sensation to touch over the pads of all digits. Her peripheral pulses were 2+. Her capillary refill is less than 2 seconds. She was neurovascularly intact in the left upper extremity. Results & Data Vital Signs (Past 12 Hours) Vital Signs Temp Pulse Pulse Resp BP Pulse Ox O2 Del Method 08/10/23 09:40 36.9 C 65 80 16 123/75 94 08/10/23 08:04 36.9 C 80 16 123/75 94 Room Air Diagnostic Findings Laboratory Results WBC 6.68 K/ul (4.8-10.8) 08/09/23 06:48 RBC 4.48 M/uL (4.20-5.40) 08/09/23 06:48 Hgb 13.3 g/dl (12.0-16.0) 08/09/23 06:48 Hct 40.1 % (37.0-47.0) 08/09/23 06:48 MCV 89.5 fL (80.0-100.0) 08/09/23 06:48 MCH 29.7 pg (25.0-34.0) 08/09/23 06:48 MCHC 33.2 g/dL (32.0-36.0) 08/09/23 06:48 RDW Std Deviation 42.4 fL (36.4-46.3) 08/09/23 06:48 RDW Coeff of Mckayla 13.0 % (11.5-14.5) 08/09/23 06:48 Plt Count 215 K/uL (130-400) 08/09/23 06:48 MPV 10.3 fL (9.4-12.4) 08/09/23 06:48 Immature Gran % (Auto) 0.3 % 08/09/23 06:48 Neut % (Auto) 83.0 % 08/09/23 06:48 Lymph % (Auto) 11.5 % 08/09/23 06:48 [place] % (Auto) 5.1 % 08/09/23 06:48 Eos % (Auto) 0.0 % 08/09/23 06:48 Baso % (Auto) 0.1 % 08/09/23 06:48 Neut # (Auto) 5.54 K/uL (1.40-6.50) 08/09/23 06:48 Lymph # (Auto) 0.77 K/uL (1.20-3.40) L 08/09/23 06:48 [place] # (Auto) 0.34 K/uL (0.11-0.59) 08/09/23 06:48 Eos # (Auto) 0.00 K/uL (0.00-0.50) 08/09/23 06:48 Baso # (Auto) 0.01 K/uL (0.00-0.20) 08/09/23 06:48 Immature Gran # (Auto) 0.02 K/uL (0.01-0.20) 08/09/23 06:48 Sodium 140 mmol/L (136-145) 08/09/23 06:48 Potassium 3.9 mmol/L (3.5-5.1) 08/09/23 06:48 Chloride 108 mmol/L (98-107) H 08/09/23 06:48 Carbon Dioxide 25 mmol/L (21-32) 08/09/23 06:48 Anion Gap 7 (3-11) 08/09/23 06:48 BUN 13 mg/dl (6-23) 08/09/23 06:48 Creatinine 0.80 mg/dl (0.6-1.2) 08/09/23 06:48 Est Cr Clr Drug Dosing 76.0 ml/min 08/09/23 06:48 Est GFR ( Amer) 85.4 ml/min 08/09/23 06:48 Est GFR (Non-Af Amer) 73.7 ml/min 08/09/23 06:48 BUN/Creatinine Ratio 21.3 (10-20) H 08/08/23 11:40 Glucose 131 mg/dl (70-99(Fasting)) H 08/08/23 11:40 POC Glucose 115 mg/dl (70-99) H 08/10/23 07:36 Fasting Glucose 134 mg/dl (70-99) H 08/09/23 06:48 Calcium 8.4 mg/dl (8.6-10.3) L 08/09/23 06:48 25-OH Vitamin D Total 12.3 ng/ml (30-100) L 08/08/23 20:12 Impressions Forearm X-Ray 08/08/23 11:21 LEFT FOREARM 2 VIEWS; LEFT WRIST 3 VIEWS; LEFT HAND 3 VIEWS CLINICAL HISTORY: Left arm injury. FINDINGS: AP and lateral views of the left forearm, 3 views of the left wrist, and 3 views of the left hand are obtained. No prior studies are available for comparison at the time of dictation. The skeletal structures are osteopenic. There is an impacted and comminuted fracture of the distal radial metaphysis with intra-articular extension and volar displacement of fragments. There is also mild overriding of fragments. There is a comminuted horizontal fracture of the distal ulnar metadiaphysis. There is ulnar sided displacement of the distal fragment by 6 mm, apex dorsal angulation, and approximately 2 cm of overriding of fragments. There is also an avulsion fracture of the ulnar styloid. Significant overlying soft tissue edema is observed. The proximal radius and ulna appear intact. The elbow joint is grossly maintained. The radiocarpal articulation is preserved. No additional fracture there is seen involving the wrist or hand. 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 IMPRESSION: 1. Distal radial and ulnar fractures as above. 2. The proximal radius and ulna appear intact. 3. No additional fracture is seen involving the wrist or hand. Electronically signed by: Tim Yadav M.D. 08/08/2023 1:26 PM Hand X-Ray 08/08/23 11:21 LEFT FOREARM 2 VIEWS; LEFT WRIST 3 VIEWS; LEFT HAND 3 VIEWS CLINICAL HISTORY: Left arm injury. FINDINGS: AP and lateral views of the left forearm, 3 views of the left wrist, and 3 views of the left hand are obtained. No prior studies are available for comparison at the time of dictation. The skeletal structures are osteopenic. There is an impacted and comminuted fracture of the distal radial metaphysis with intra-articular extension and volar displacement of fragments. There is also mild overriding of fragments. There is a comminuted horizontal fracture of the distal ulnar metadiaphysis. There is ulnar sided displacement of the distal fragment by 6 mm, apex dorsal angulation, and approximately 2 cm of overriding of fragments. There is also an avulsion fracture of the ulnar styloid. Significant overlying soft tissue edema is observed. The proximal radius and ulna appear intact. The elbow joint is grossly maintained. The radiocarpal articulation is preserved. No additional fracture there is seen involving the wrist or hand. 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 IMPRESSION: 1. Distal radial and ulnar fractures as above. 2. The proximal radius and ulna appear intact. 3. No additional fracture is seen involving the wrist or hand. Electronically signed by: Tim Yadav M.D. 08/08/2023 1:26 PM Wrist X-Ray 08/08/23 11:21 LEFT FOREARM 2 VIEWS; LEFT WRIST 3 VIEWS; LEFT HAND 3 VIEWS CLINICAL HISTORY: Left arm injury. FINDINGS: AP and lateral views of the left forearm, 3 views of the left wrist, and 3 views of the left hand are obtained. No prior studies are available for comparison at the time of dictation. The skeletal structures are osteopenic. There is an impacted and comminuted fracture of the distal radial metaphysis with intra-articular extension and volar displacement of fragments. There is also mild overriding of fragments. There is a comminuted horizontal fracture of the distal ulnar metadiaphysis. There is ulnar sided displacement of the distal fragment by 6 mm, apex dorsal angulation, and approximately 2 cm of overriding of fragments. There is also an avulsion fracture of the ulnar styloid. Significant overlying soft tissue edema is observed. The proximal radius and ulna appear intact. The elbow joint is grossly maintained. The radiocarpal articulation is preserved. No additional fracture there is seen involving the wrist or hand. 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 IMPRESSION: 1. Distal radial and ulnar fractures as above. 2. The proximal radius and ulna appear intact. 3. No additional fracture is seen involving the wrist or hand. Electronically signed by: Tim Yadav M.D. 08/08/2023 1:26 PM Chest X-Ray 08/08/23 13:53 SINGLE VIEW CHEST CLINICAL HISTORY: Dyspnea. Preoperative examination FINDINGS: An AP, portable, upright chest radiograph is compared to study dated 01/19/2014. The heart is enlarged noting atherosclerotic calcification of the thoracic aorta. The pulmonary vasculature is noncongested. Chronic interstitial thickening is similar to previous. The lungs and pleural spaces are clear. No pneumothorax is seen. The skeletal structures are osteopenic. There are chronic/healed right-sided rib fractures. Arthritic change is noted in shoulders and spine. IMPRESSION: Cardiomegaly with no active disease in the chest. ACT 112: Negative or not required by law. Electronically signed by: Tim Yadav M.D. 08/08/2023 2:[address] 08/08/23 20:08 Exam(s): CT LEFT WRIST Without Contrast EXAM: CT Left Upper Extremity Without Intravenous Contrast, Wrist CLINICAL HISTORY: Reason for exam: post op left wrist ex fix. TECHNIQUE: Axial computed tomography images of the left wrist without intravenous contrast. CTDI is 110.23 mGy and DLP is 1637.07 mGy-cm. Automated exposure control was utilized for the study. A dose lowering technique was utilized adhering to the principles of ALARA. COMPARISON: No relevant prior studies available. FINDINGS: Bones/joints: Comminuted fracture through the distal radius, extending to the radial shaft (Colles' fracture). Comminuted fracture through the distal diaphysis of the ulna. No dislocation. Soft tissues: Moderate soft tissue edema and subcutaneous gas likely from recent surgery. IMPRESSION: 1. Comminuted fracture through the distal radius, extending to the radial shaft (Colles' fracture). 2. Comminuted fracture through the distal diaphysis of the ulna. 3. Moderate soft tissue edema and subcutaneous gas likely from recent surgery. Electronically signed by: Christine Kay MD 08/08/23 21:36 PM
--- NOTE | 2023-08-10 10:45 | Discharge Summary ---
Date of Service August 10, 2023 Admission HPI Per Admitting Provider The patient is 73 years old. [id number]. Tripped and fell. Landed on left wrist. The wrist bent underneath. Positive bleeding. The injury happened at about 10:00. No prior history of left wrist injuries. Brought to the ER x- rays showed a fracture and I was consulted to assist.Pain isolated to the left wrist. No other injuries reported. No numbness or tingling. Principal Diagnosis Open comminuted fracture of left distal ulna and radius Discharge Exam Left upper extremity: Dressings were removed and the patient is left wrist and forearm. She does have some mild oozing from the surgical incision sites. Pin sites were cleansed with a 50-50 mix of hydrogen peroxide and normal saline solution. All remaining incision sites were lightly padded with sterile saline wipes. New dressings were applied consisting of Xeroform gauze around the pins and over the incision sites. These areas were covered with sterile 4 x 4's as well as ABD pads. New Dalton bandages were applied over the external fixator. Patient tolerated this very well. Her daughter who is a PA in the emergency department was present and states that she will help her mother with dressing changes on a daily basis. Patient was able to fully flex and extend at her elbow. She had appropriate dexterity of her fingers. She was able to detect light sensation to touch over the pads of all digits. Her peripheral pulses were 2+. Her capillary refill is less than 2 seconds. She was neurovascularly intact in the left upper extremity. Discharge Data Allergies Allergy/AdvReac Type Severity Reaction Status Date / Time No Known Drug Allergies Allergy Verified 08/08/23 14:38 Consultations 08/08/23 13:06 ED Decision to Admit Stat 08/08/23 20:19 Consult Hospitalist Routine Procedures Performed Operation Date: 08/08/23 14:30 Actual Procedures p with Application of External Fixator Left Wrist(Left) - Parth Veras MD s Closed Reduction Internal Fixation(Left) - Parth Veras MD s Irrigation and Debridement Left Wrist and (Left) - Parth Veras MD Ordered Studies 08/08/23 FL wrist LT 3V RTN Routine FL wrist LT 3V RTN Routine 08/08/23 20:08 CT wrist LT wo con Routine Hospital Course (1) Open fracture of left distal radius and ulna: 73 year old female POD 2s/p Irrigation and Debridement Left Wrist and Closed Reduction with Application of External Fixator Left Wrist(Left) - Parth Veras MD Keep sling in place, elevate hand/arm with pillows ICE prn Patient is able to freely wiggle her fingers Vitamin D Deficient - will need 50,000U weekly Dressing changed this morning along with pin care Pain control with PO medication DVT not indicated Prescription for an antibiotic (Augmentin) was provided along with a prescription for pain medication. Patient will be discharged this morning and is scheduled to follow-up with Dr. Peng at [facility] [place] later this morning. Total Time Total Time Spent Total Time Spent (In Minutes): 30 mins Discharge Plan Discharge Items Patient Disposition: Home - Self-Care Reason For Visit: POST OP LEFT WRIST EX-FIX Discharge Diagnosis: Left wrist fracture external fixation Activity: As commented below Bathing: Keep incision dry Bathing Comment: May shower tomorrow Sexual Activity: Wait until after follow-up appointment Exercise/Sports: Wait until after follow-up appointment Driving/Machine Use: No driving until cleared by student development specialist Weightbearing: Left non-weightbearing Weightbearing Comment: with sling Non-emergency contact: Surgeon Call non-emergency contact if: you have any medication questions, your temperature is above 101.5 and your wound pain has increased Follow-up/Referrals: Tomasa Dc MD [Primary Care Provider] - 08/17/23 1:00 pm () Cody Peng MD [Physician] - 08/10/23 10:00 am (PATIENT TO GO TO DR PENG'S OFFICE AFTER DISCHARGE.) Diet: Regular Addtl Attending Provider Instructions: Post-operative Instructions Pain Expect to be in a fair amount of pain after surgery. Remember, our goal is not to eliminate your pain, but to make it tolerable. It is a good idea to stay ahead of your pain by taking the medications you were prescribed once you get home. Typically, the pain starts improving 3-7 days after surgery. You should start weaning off the narcotic pain medication (oxycodone, hydrocodone, hydromorphone, morphine) as soon as your pain improves. Please call our office if your pain is not adequately controlled. Ice Ice your operative site at least 5 times a day for 15-30 minutes at a time. Make sure you have a thin cloth between the ice or cooling unit and your skin to prevent ontiveros bite. This is especially important if you received a nerve block. Continue icing your operative site for the first 5-7 days after surgery, then as needed. Diet/Nausea/Vomiting Start by drinking clear liquids and eating crackers. If you can tolerate this, then you may resume your normal diet. If you feel nauseated or vomit, take Zofran/ondansetron (if prescribed). Please call our office if you have intractable nausea or vomiting, or, if after hours, you may go to the Emergency Room for help. Constipation Constipation is a common side effect of narcotic pain medication. If you have not had a bowel movement within 2 days after surgery, we recommend purchasing an over the counter laxative such as Milk of Magnesia, Dulcolax, or Miralax from a local pharmacy, and taking it as instructed. Call our clinic if any questions. Slings and Braces If you were placed in a sling or brace, it must be worn at all times, including sleep. You may remove your sling or brace for physical therapy, home exercises, and showering. The length of time you will be in your brace and range of motion restrictions depends on what surgery you had; these details will be reviewed at your first post-operative appointment. Weight bearing and Range of Motion. Do not bear any weight through your operative extremity immediately after surgery. If you had upper extremity surgery, do not lift anything with that arm. If you are in a knee brace, keep it locked in place until your follow-up. We will discuss your weight bearing, range of motion, and lifting restrictions in detail at your first post-operative appointment. Continuous Passive Motion (CPM) Machine If you were prescribed a CPM machine, it will start after your first post- operative appointment, at which time we will give you instructions on the range of motion settings and duration of treatment Physical therapy You will be given a prescription for physical therapy or occupational therapy at your first post-operative appointment. Typically, patients start therapy within 1 week of surgery Wound care and showering We will inspect your wound at your first post-operative visit, and may do a dressing change at that time. Most patients will be in a water-proof dressing that is removed 14 days after surgery. It is normal to see some dried blood on the dressing. Do not remove your dressing, paper strips or sutures yourself unless you are given permission. Showering is allowed the day after surgery. Do not scrub or remove any dressings. The wound should not be submerged underwater (i.e. in a bathtub or pool) until 4 weeks after surgery KATERYNA stockings If you were given white stockings, these are to be worn at all times except to shower (on both legs) for the first 2 weeks after surgery. Return to Work Your return to work depends on what surgery was done and what type of work you do. Please bring any paperwork your employer needs completed to your first post-operative visit. Also, bring a description of your job duties, as this helps us to understand what risks you may face at work. Travel Avoid long distance travel (greater than 1 hour) in airplanes and cars for the first 6 weeks after surgery. If you must travel, you need to have a Doppler ultrasound done before you travel to rule out a blood clot in your legs. When to call the office It is normal to have swelling and bruising in the limb that was operated on. This will improve with time. It is also normal to have fevers for the first 2 days after surgery. Reasons you should call your doctor include: Uncontrolled pain; Nausea, vomiting, or constipation that does not improve with medication; Fevers over 101.5, chills, sweats; Drainage or bleeding from the wound; Foul odor; Spreading areas of redness; Any other concerns Pending Studies at Discharge: No Stand-Alone Forms: My [facility], Smoking Cessation Medications and DC Order Prescriptions: New oxycodone-acetaminophen [Percocet] 5-325 mg Tablet 1 - 2 tab PO Q4H MDD onging Tx PRN (Reason: pain) Qty: 28 0RF amoxicillin-pot clavulanate [Augmentin] 500-125 mg tablet 1 tab PO BID 10 Days Qty: 20 0RF oxycodone-acetaminophen [Percocet] 5-325 mg tablet 1 tab PO Q4H MDD ongoing Tx Qty: 28 0RF Continued tramadol 50 mg tablet 50 mg PO DAILY PRN (Reason: back pain) Qty: 30 0RF latanoprost 0.005 % drops 1 drp ophthalmic (eye) DAILY simvastatin 10 mg tablet 10 mg PO HS omeprazole 40 mg capsule,delayed release(DR/EC) 40 mg PO QAM lisinopril 10 mg tablet 10 mg PO QAM metformin 500 mg tablet extended release 24 hr 500 mg PO HS Discharge Orders: Discharge Order (Routine); Ordered 08/10/23 Ordered By: Darren Green Admission Data Admit Date/Time: 08/08/23 18:34 Attending Provider: Parth Veras Admit Provider: Parth Veras Primary Care Provider: Tomasa Dc Other Providers: Parth Veras; Aviva Vu Other Interventions: Discharge Summary Assessment (RN) Last Done: 08/10/23 09:40
== END 2023-08-10 10:23 | disposition home or self-care (01) | DRG 501 ==
LOC: ED 11:13 → OR 15:10 → 3N 18:34